=== PATIENT | female | born 1955 | race Caucasian/White ===

== ENCOUNTER 2023-07-08 16:02 | Inpatient (IN) | payer MEDICARE, OTHER, SELFPAY ==
[2023-07-06 19:07] VITALS: BP 136/68
--- NOTE | 2023-07-06 19:14 | ED.GENMED ---
Addendum entered and electronically signed by Alex Avalos, 07/07/23 12:57:
Update blood pressure improved after saline, CT noted labs noted EKG noted patient feeling better, reviewed her workup I believe she can be discharged to home she would like to follow-up with [facility] she is in the practice before for her hip
replacement I offered the patient narcotic analgesia she politely declined
Addendum entered and electronically signed by Alex Avalos, 07/07/23 10:23:
Update
Signout this morning patient waiting for PT case management evaluation shows me she had a slip and fall going into the [facility] movie theater last evening she has a minimally displaced humerus fracture pubic rami fracture has not had a breakfast, on
reevaluation by nursing this morning had some hypotension, symptomatic when she sits up, looks well here, could be vasovagal could be volume contracted, will check EKG CT of the chest abdomen pelvis due to trauma, she has no headache or neck pain,
states she did not hit her head or neck
Disposition pending response to treatment and labs/imaging
30 minutes critical care time
CRITICAL CARE STATEMENT: A total of 30 minutes of critical care time was provided for this patient. This includes management of unstable vital signs, evaluation of the patient at bedside, reviewing the patient's pertinent medical records discussion
with EMS providers and patient's family in addition to discussion with consultants, review of old EKGs and review of pertinent medical records. This time with separate from time utilized to perform the aforementioned documented procedures
Original Note:
History of Present Illness
General
Chief Complaint: Fall
Source: patient
Exam Limitations: none
Time Seen by Provider: 07/06/23 19:05
Nursing documentation reviewed up to this point in time: agreed with
Travel History
Have you had any contact with someone who has COVID-19?: No
Do you have any symptoms of coronavirus? Fever > 100 degrees, chills, cough, shortness of breath, sore throat, loss of taste or smell, muscle aches, or headache?: No
History of Present Illness
History of Present Illness:
68-year-old female with no reported chronic medical issues who presents to the emergency department for evaluation after trip and fall. Patient was at the movie theater's and says that she went to the bathroom tripped on the carpet and fell onto
her left side. She says she injured her left shoulder and hip. She says she did not hit her head. Did not lose consciousness. She denies any other injuries or complaints. She denies any headache or neck pain. Denies any back pain. Denies any
chest or abdominal pain. She denies any numbness or weakness in her extremities. She denies being on any blood thinners�in fact she does not take any medicine she says.
Review of Systems
Review of Systems
All Other Systems: ROS reviewed and negative except as documented in HPI and ROS
Respiratory: Denies trouble breathing
Cardiac: Denies chest pain
ABD/GI: Denies abdominal pain, nausea or vomiting
: Denies flank pain
Musculoskeletal: Reports joint pain (Left shoulder and hip pain); Denies neck pain or back pain
Neurological: Denies headache, weakness or numbness
Phy Exam
Physical Exam
Physical Exam:
General: Awake, alert, oriented x3 with a GCS of 15; appears mildly uncomfortable
Head: Normocephalic, atraumatic
Eyes: Conjunctiva normal, pupils equal round and reactive to light bilaterally
Throat: Airway intact, handling secretions
Neck: Trachea midline, no cervical spine tenderness
Back: No signs of trauma the back or flank and no tenderness in the thoracic or lumbar spine
Lungs: Breathing comfortably no distress
Heart: Regular rate; no chest wall tenderness
Abd: Soft, non distended, nontender
Neuro: Cranial nerves grossly intact, speech fluid; motor and sensory function intact radial, median, ulnar nerve distribution left upper extremity
Skin: no rash
Extremities: Patient has some mild tenderness of her posterior lateral left hip and she has pain with maximum flexion of the passively as well as with extremes of internal and external rotation of the left hip; she has no tenderness or pain in the
left ankle or knee and allows full passive range of motion in these joints with only discomfort in the hip on flexion of the knee; right lower extremities atraumatic and patient moves through full active range of motion comfortably; on exam of her
left upper extremity she has tenderness along the anterior left humeral head, no significant left clavicular tenderness, no significant tenderness of the mid to distal humerus, no tenderness in the left elbow or wrist and allows for full passive
range of motion of these joints without any discomfort; right upper extremity is atraumatic and she moves this through full active range of motion comfortably; she has good palpable pulses in all extremities: specifically palpable left DP and left
radial pulses
Scores
Heart Failure Risk
Heart Failure Risk Score: Not Applicable
Heart Score for Chest Pain Patients
STEMI patient?: Not applicable
Withdrawal Assessment of Alcohol
Withdrawal Assessment Completed?: Not applicable
Course
Orders/Labs/Results
Orders:
Orders
07/06/23 19:11
Ketorolac [Toradol] 30 mg IM NOW STA
CR Shoulder, Trauma - Left Urgent
Reason For Exam: left shoulder pain
07/06/23 19:13
CR Hip - LT w/wo Pel 2-3 Vw* Urgent
Comment:
Reason For Exam: left hip pain s/p fall
Include a pelvis x-ray?: Yes
07/06/23 20:52
Sling Left-Treatment ONCE
07/06/23 21:13
Case Management Consult ONCE
Case Management Consult: Discharge Planning
Pt Eval And Treat Urgent
Activity Level: Ambulate
Vital Signs
Initial and Last Documented VS:
Initial Vital Signs
Temp Pulse Resp BP Pulse Ox
36.6 C 82 18 136/68 100
07/06/23 19:07 07/06/23 19:07 07/06/23 19:07 07/06/23 19:07 07/06/23 19:07
Last Documented Vital Signs
Temp Pulse Resp BP Pulse Ox
36.6 C 82 18 136/68 100
07/06/23 19:07 07/06/23 19:07 07/06/23 19:07 07/06/23 19:07 07/06/23 19:07
MDM/Problems Addressed
Differential Diagnosis Includes:
Shoulder injury: Humeral head fracture, AC separation, clavicular fracture, mid humerus fracture, shoulder dislocation, contusion, sprain, rotator cuff injury
Hip injury: Fracture, dislocation, contusion
MDM/Problems Addressed:
68-year-old female presents for evaluation after mechanical fall onto her left side. She injured her left shoulder and hip but did not hit her head and there was no loss of consciousness. She is not on blood thinners. Vital signs are within
normal limits. Exam as above. Plan to check x-ray of the left shoulder and left hip. Will treat patient's pain. Will monitor closely reassess after the above.
X-rays reviewed: Patient has fracture left humerus as well as left pubic ramus fracture. Clinical reassessment patient's pain is well-controlled with Toradol. Will place in a sling. Discussed with orthopedics they can see patient in the office.
Patient does not feel up to ambulating at this point with her injuries would be unable to use crutches or walker. Consult placed to physical therapy and to case management to evaluate patient in the morning for placement in rehab. Will continue to
monitor.
*Radiology
Radiology exam reviewed: preliminary read by ED provider and radiology read reviewed
*Pulse Oximetry
Patient hypoxic: no
*Critical Care Note
Total Time (30-74mins, 75-104mins- exclusive of procedures): Not Applicable
Data Reviewed
Source: patient and ambulance crew
ED Attending Note
-
Portions of this chart may have been created with voice recognition software.� Occasional wrong word or��sound alike� substitutions may have occurred due to the inherent limitations of voice recognition software.
Discharge Plan
Departure
Patient Disposition: Acute Rehab Facility
Date of Disposition: 07/06/23
Time of Disposition: 21:14
Admit to doctor: CM in AM for rehab
Discharge Problem:
Fracture, humerus, Fracture of pubic ramus
Referrals:
Qiuque Roth MD [Family Provider] -
Interventions
Interventions:
*Risk Screen - Suicide Last Done: 07/06/23 19:05
*General Assessment Last Done: 07/06/23 19:05
[2023-07-06] MEDS: TORADOL 30 MG IM (19:19)
[2023-07-07] VITALS (15 sets, daily range): BP systolic 55–111; BP diastolic 39–68
[2023-07-07] MEDS: TORADOL 30 MG IV (03:16)
[2023-07-07] MEDS: TYLENOL 1000 MG PO (07:48)
--- NOTE | 2023-07-07 08:40 | CM ---
Addendum entered by Devi Sharma RN 07/07/23 15:26:
[facility] is reviewing, but unsure if they can accept [facility] as a Primary payor.
Addendum entered by Devi Sharma RN 07/07/23 15:06:
CM sent additional referrals to [facility], [facility], and [facility]
Addendum entered by Devi Sharma RN 07/07/23 15:01:
[facility] has no beds at this time.
Addendum entered by Devi Sharma RN 07/07/23 14:59:
[facility] unable to accept.
Addendum entered by Devi Sharma RN 07/07/23 14:42:
[facility] is unable to accept. Patient has declined [facility]. CM awaiting accepting facility.
Addendum entered by Devi Sharma RN 07/07/23 13:13:
[facility] is considering but wants to confirm that [facility] will authorize a SNF stay. CM will await call back.
Addendum entered by Devi Sharma RN 07/07/23 09:55:
[facility] has accepted patient. CM reviewed medical records. Patient is not medically ready for discharge at this time. CM will continue to follow for needs.
Addendum entered by Devi Sharma RN 07/07/23 09:07:
CM met with patient and in room. Patient is agreeable to bed search for SNF, but would prefer home discharge with VN. CM sent referrals to [facility], [facility], [facility], [facility], [facility] and [facility].
CM is awaiting PT recommendations.
Original Note:
CM reviewed medical records. CM spoke with [facility] secondary and they will approve SNF based on medical necessity. CM will continue to follow for PT recommendations.
[2023-07-07] MEDS: NSS 1000 IV (10:12)
[2023-07-07 10:16] LABS: % Basophils 0.5 % (0-2); % Immature Granulocytes 0.3 % (0-0.5); % Lymphocytes 8.3 % (20.5-51.1); % Neutrophils 82.9 % (42.2-75.2); Absolute Lymphocytes 0.5 10^3/uL (1.2-3.4); Absolute Monocytes 0.5 10^3/uL (0.1-0.6); Absolute Neutrophils 4.8 10^3/uL (1.4-6.5); Hematocrit 31.3 % (37.0-47.0); Hemoglobin 11.2 g/dL (12.0-16.0); Mean Corp Hgb Conc. 35.8 g/dL (33.0-37.0); Mean Corpuscular Hgb 31.9 pg (27.0-31.0); Mean Corpuscular Volume 89.2 fL (81.0-99.0); Mean Platelet Volume 10.1 fL (7.4-10.4); Nucleated Red Blood Cells % 0 %; Platelet Count 142 10^3/uL (130-400); Red Blood Cell Count 3.51 10^6/uL (4.20-5.40); Red Cell Dist. Width 12.4 % (11.5-14.5); White Blood Cell Count 5.8 10^3/uL (4.8-10.8)
[2023-07-07 10:29] LABS: ALT (SGPT) 20 U/L (0-35); AST (SGOT) 29 U/L (14-36); Albumin 3.4 g/dl (3.5-5.0); Alkaline Phosphatase 89 U/L (38-126); Blood Urea Nitrogen 19 mg/dl (7-17); Calcium 8.6 mg/dl (8.4-10.2); Carbon Dioxide 26 mmol/L (22-30); Chloride 101 mmol/L (98-107); Glucose 122 mg/dl (70-99); Potassium 3.9 mmol/L (3.5-5.1); Sodium 130 mmol/L (135-145); Total Bilirubin 1.3 mg/dl (0.2-1.3); Total Protein 5.8 g/dl (6.3-8.2); eGFR > 60.00
[2023-07-07 12:56] LABS: Troponin I < 0.012 ng/ml
--- NOTE | 2023-07-07 13:45 | HPS.HSE ---
Addendum entered and electronically signed by Prakash Walker MD 07/07/23 22:11:
I independently saw and examined the patient on July 07, 2023.
The [employer] DEPARTMENT CHAIR's note was reviewed and I agree with the note.
Comment:
68-year-old female with past medical history of left hip replacement, neuropathy and mechanical falls presented status post fall at the [facility] movie theater. Patient was at the movie theater, she was holding her urine for a long time, she went to
the bathroom, however after using the bathroom and after coming out of the bathroom, she tripped onto the carpet and fell onto her left side. She says she injured her left shoulder and left hip. She said that she did not hit her head and did not
lose consciousness, and denied any having palpitations, sweating, chest pain, blurry vision or shortness of breath prior to the fall. She denies any headache or neck pain, back pain, chest or abdominal pain. She denied any numbness or true weakness
in her extremities.
She said that she did get dizzy as she got up with physical therapy.
Vital Signs
Afebrile
Hypotensive with SBP down into the 50s and 70s
RR okay
Oxygen saturation okay on room air
Physical Exam
General: Well Developed, Well Nourished and No Apparent Distress
HEENT: Normocephalic, Moist mucous membranes and Atraumatic
Respiratory: Clear
Cardiac: S1/S2 and Regular Rhythm
GI: Soft, Non Tender, Non Distended and Normal Bowel Sounds
Musculoskeletal: No Cyanosis and No Edema
Skin: Warm. Dry.
Neuro: AAO x 3 and Nonfocal/grossly intact
Psych: Calm
Assessment/Plan
# Fall with arm and pubic rami fracture fracture
#Left Humerus Fracture
-Chest abdomen pelvis CT with Partially visualized proximal left humerus fracture. Mildly displaced left superior and inferior pubic rami fractures.
-Hip x-ray with Displaced left superior pubic ramus fracture. Probable nondisplaced left inferior pubic ramus fracture.
-Shoulder x-ray with Left humeral shaft fracture.
-PT/OT consult
-right shoulder in sling
-orthopedics consulted, recommendations appreciated
-Neurovascular checks
# Hyponatremia likely hypovolemic
-Sodium 130
-Normal saline in ER
-fluid restriction
-BMP in a.m.
# Hypotension likely from dehydration
-Soft BP in ER
-obtain orthostatics
-Monitor vital signs
-Received IV fluids
#Neuropathy
#DVT prophylaxis
-scd
#CODE status
-full code
Original Note:
Family Physician
-
Family Physician: Quique Roth
Chief Complaint
-
left shoulder pain
History of Present Illness
68-year-old female with no significant PMH presented to us s/p fall at theater.� Patient was at the movie theater's and says that she tripped on the carpet and fell onto her left side.� She says she injured her left shoulder and hip.� She says she
did not hit her head.� Did not lose consciousness.� She denies any headache or neck pain.� Denies any back pain.� Denies any chest or abdominal pain.� She denies any numbness or weakness in her extremities.�denied abdominal pain, n,v,d. denied
dysuria or hematuria.
stated dizzy as she got up with physical therapy. she has not ate or drink since last night. admitting for further managment.
Medical History
Past Medical History
Past Medical History: Reports None and Other
Additional Past Medical History:
left hip fracture.
Past Surgical History: Reports None and Other
Additional Past Surgical History:
left hip replacement
right wrist surgery
Social History
Tobacco: Former Smoker
Alcohol: None
Drug: None
Personal:
Living: With Family
Family History
Family History: Not pertinent
Allergies / Home Medications
Allergies reflects when Allergies were last updated in [employer].
Home Medications with original date entered in [employer]
Allergy/Medication List:
Allergies
Allergy/AdvReac Type Severity Reaction Status Date / Time
No Known Allergies Allergy Unverified 07/06/23 19:05
Home Medications
ibuprofen 400 mg tablet 400 mg PO Q8H PRN Pain #30 tabs 07/07/23
Review of Systems
-
Constitutional: Reports No Symptoms
EENT: Reports No Symptoms
Respiratory: Reports No Symptoms
Cardiac: Reports No Symptoms
Abdomen/GI: Reports No Symptoms
: Reports No Symptoms
Musculoskeletal: Reports No Symptoms and Other (left shoulder and pelvic pain)
Skin: Reports No Symptoms
Neurological: Reports No Symptoms
Endocrine: Reports No Symptoms
Hematologic/Lymphatic: Reports No Symptoms
Psych: Reports No Symptoms
Physical Exam
Vital Signs
Vital Signs
Temp Pulse Resp BP Pulse Ox
97.8 F 78 18 99/50 97
07/06/23 19:07 07/07/23 13:00 07/07/23 13:00 07/07/23 13:00 07/07/23 13:00
Physical Exam
General: Well Developed, Well Nourished and No Apparent Distress
HEENT: NormoCephalic, Moist mucous membranes and Atraumatic
Respiratory: Clear
Cardiac: S1/S2 and Regular Rhythm; No Murmur or Rub
GI: Soft, Non Tender, Non Distended and Normal Bowel Sounds; No Organomegaly
Rectal: Deferred by Provider
Musculoskeletal: No Clubbing, No Cyanosis and No Edema
Skin: No Rash
Neuro: AO x 3 and Nonfocal/grossly intact
Psych: Calm
Laboratory Results
-
07/07/23 10:04
07/07/23 10:04
Laboratory Results
Total Bilirubin 1.3 mg/dl (0.2-1.3) 07/07/23 10:04
AST 29 U/L (14-36) 07/07/23 10:04
ALT 20 U/L (0-35) 07/07/23 10:04
Alkaline Phosphatase 89 U/L (38-126) 07/07/23 10:04
Troponin I < 0.012 ng/ml 07/07/23 12:23
Data Reviewed
-
Diagnostic Radiology: Report Reviewed by me
Lab Data: Labs Reviewed by me
Impression/Plan
-
# Fall with arm and pubic rami fracture fracture
-Chest abdomen pelvis CT with Partially visualized proximal left humerus fracture. Mildly displaced left superior and inferior pubic rami fractures.
-Hip x-ray with Displaced left superior pubic ramus fracture. Probable nondisplaced left inferior pubic ramus fracture.
-Shoulder x-ray with Left humeral shaft fracture.
-PT/OT consult
-right shoulder in sling
-orthopedics consulted
# Hyponatremia likely hypervolemic
-Sodium 130
-Normal saline in ER
-fluid restriction
-BMP in a.m.
# Hypotension likely from dehydration
-Soft BP in ER
-obtain orthostatics
-Monitor vital signs
#DVT prophylaxis
-scd
#CODE status
-full code
--- NOTE | 2023-07-07 15:38 | CM ---
Addendum entered by Devi Sharma RN 07/07/23 16:38:
[facility] will not accept [facility] authorization as Medicare is [employer].
Original Note:
CM updated patient with bed search. Patient is appreciative for CM assistance.
--- NOTE | 2023-07-07 17:27 | PTCARENOTE ---
Pt arrived to [facility] from ED s/p fall- pelvic fx and L humerus fx. Pt AAOx3. Pt states minimal pain at this time. Pt oriented to call gallo and room, bed locked and in position, call gallo within reach.
[2023-07-07] MEDS: TYLENOL 650 MG PO (20:02)
[2023-07-08] VITALS (8 sets, daily range): BP systolic 98–113; BP diastolic 52–72; PULSE 75–90; O2SAT 97
[2023-07-08] MEDS: TYLENOL 650 MG PO ×2 (02:34→20:40)
[2023-07-08] MEDS: TORADOL 30 MG IV (03:17)
[2023-07-08 06:21] LABS: Hematocrit 26.5 % (37.0-47.0); Hemoglobin 9.6 g/dL (12.0-16.0); Mean Corp Hgb Conc. 36.2 g/dL (33.0-37.0); Mean Corpuscular Hgb 32.4 pg (27.0-31.0); Mean Corpuscular Volume 89.5 fL (81.0-99.0); Mean Platelet Volume 10.3 fL (7.4-10.4); Platelet Count 110 10^3/uL (130-400); Red Blood Cell Count 2.96 10^6/uL (4.20-5.40); Red Cell Dist. Width 12.4 % (11.5-14.5); White Blood Cell Count 5.1 10^3/uL (4.8-10.8)
[2023-07-08 06:47] LABS: Blood Urea Nitrogen 17 mg/dl (7-17); Calcium 8.2 mg/dl (8.4-10.2); Carbon Dioxide 29 mmol/L (22-30); Chloride 96 mmol/L (98-107); Glucose 106 mg/dl (70-99); Sodium 126 mmol/L (135-145); eGFR > 60.00
--- NOTE | 2023-07-08 09:22 | CON.ORTHO ---
Consultation
-
Date/Time Consultation Requested: 07/07/2023
Date/Time Consultation Performed: 07/08/2023 915 Am
Requesting Provider: Primary
Performing Provider: Dot
Reason for Consultation: Left proximal humeral shaft fracture
Consultation - Orthopedics
History
HPI: 68-year-old female healthy presented to the emergency department status post fall with complaints of left hip and groin pain. She was subsequently diagnosed with a left proximal humeral shaft fracture as well as a left-sided superior inferior
pubic rami fracture. She was subsequently admitted to the hospitalist service for ambulatory dysfunction orthopedics was consulted. [place] Today she is
complaining of pain localized to the left upper extremity as well as some groin and low back pain. She has had difficulty ambulating. She does report to me that she is actually very active at baseline. She goes to the gym frequently works out
does cardio as well as strength training.
Allergies / Home Medications
Past medical history: None reported
Past surgical history: Left total hip arthroplasty, open reduction internal fixation left distal radius fracture
Social history: Lives at home with family, non-smoker, former smoker from 14 until 24
Family history: Not pertinent
Allergy/AdvReac Type Severity Reaction Status Date / Time
No Known Allergies Allergy Unverified 07/06/23 19:05
Medication Instructions Recorded
Beet Powder 1 dose PO .MID-DAY 07/07/23
ICaps 1 tab PO BID 07/07/23
Vitamin C With Essie Hips 1 tab PO DAILY@1400 07/07/23
cyanocobalamin (vitamin B-12) 1 ml PO DAILY 07/07/23
1,000 mcg/mL oral drops
Vital Signs / Lab Results
Temp Pulse Resp BP Pulse Ox
98.9 F 69 16 98/61 95
07/08/23 07:45 07/08/23 07:45 07/08/23 07:45 07/08/23 07:45 07/08/23 07:45
07/08/23 05:35
07/08/23 05:35
10 point review of systems reviewed and negative as otherwise stated
General: Comfortable appearing supine in bed, sling left upper extremity
Musculoskeletal
Left upper extremity without ecchymotic staining, moderate swelling throughout left upper arm
Sling in place
There is tenderness palpation over proximal humerus proximal humeral shaft
Motor and sensation grossly intact distally including the radial nerve
There are some mild tenderness palpation left groin
There is some reproducible pain with motion to the left hip
Able to straight leg raise bilaterally
Distal motor and sensation baseline lower extremities
No other areas of bony tenderness palpation crepitation of long bones and joints and tertiary examination
Diagnostic studies
X-rays left shoulder reveal somewhat comminuted proximal humeral shaft fracture mildly angulated with significant displacement
CT scan chest abdomen pelvis reviewed does show left-sided LC 1 injury to include superior and inferior pubic rami fracture
Assessment / Plan
68-year-old healthy and active female status post fall with left displaced proximal humeral shaft fracture as well as left-sided LC 1 injury. I had a long discussion with the patient regarding her diagnoses and treatment options. Specifically for
proximal humeral shaft fracture I did discuss both surgical and nonsurgical options. I do think that this would be very difficult to control with a Anders style brace given the proximal nature of her fracture. She is quite active and I do think
she would be a good candidate for operative fixation of this fracture. We discussed doing this during this hospitalization or following up on an outpatient basis. She is not sure after discussion whether or not she is planning on going home or
whether or not she is being discharged to a SNF. I will plan to reach out to the primary team to discuss her disposition and come up with a treatment plan. In the interim would recommend immobilization left upper extremity in sling. For her pubic
rami fractures, she can certainly be weightbearing to her tolerance bilateral lower extremities. Would recommend DVT prophylaxis during hospitalization.
Nonweightbearing left upper extremity in sling
Weightbearing as tolerated bilateral lower extremity
Pain control
PT OT
DVT prophylaxis
Will discuss with primary team regarding disposition and timing for operative fixation left proximal humerus shaft fracture.
--- NOTE | 2023-07-08 10:16 | W.PN.HOSP.TC ---
Addendum entered and electronically signed by Prakash Walker MD 07/08/23 15:50:
Consulted nephrology for worsening hyponatremia
Original Note:
Today's Communication/Plan
-
Surgery early next week
Assessment / Plan
Assessment / Plan
Physical Exam
General: Well Developed, Well Nourished and No Apparent Distress
HEENT: Normocephalic, Moist mucous membranes and Atraumatic
Respiratory: Clear
Cardiac: S1/S2 and Regular Rhythm
GI: Soft, Non Tender, Non Distended and Normal Bowel Sounds
Musculoskeletal: No Cyanosis and No Edema
Skin: Warm. Dry.
Neuro: AAO x 3 and Nonfocal/grossly intact
Psych: Calm
Assessment/Plan
# Fall with arm and pubic rami fracture fracture
# Left Humerus Fracture
-Chest abdomen pelvis CT with Partially visualized proximal left humerus fracture. Mildly displaced left superior and inferior pubic rami fractures.
-Hip x-ray with Displaced left superior pubic ramus fracture. Probable nondisplaced left inferior pubic ramus fracture.
-Shoulder x-ray with Left humeral shaft fracture.
-One option is discharge patient to home and follow-up in the orthopedics office and schedule repair outpatient, however:
-Patient would like to go to a SNF, discussed with orthopedics surgery, in that case patient will need to stay here until July 11, 2023 or July 12, 2023 to get surgery after which she can be discharged to a SNF.
-PT/OT consult
-right shoulder in sling
-orthopedics consulted, recommendations appreciated
-Neurovascular checks
# Hyponatremia likely hypovolemic
-Sodium 130
-Normal saline in ER
-Continue PO fluid restriction
-BMP repeat tonight, consult nephrology if hyponatremia worsening
# Hypotension likely from dehydration
-Soft BP in ER -- NOW IMPROVED
-Orthostatic vital signs negative
-Monitor vital signs
-Received IV fluids
#Neuropathy
#DVT prophylaxis
-scd
#CODE status
-full code
Anticipated Discharge: > 48 hours
Subjective/Interval History
-
Date of Service: July 08, 2023
Patient was seen and examined. She appeared to be comfortable, denied any dizziness or lightheadedness. Blood pressure appears to have improved today, she is eating and drinking better.
Objective Data
-
Labs:
Laboratory Results
07/08/23
05:35
WBC 5.1
Hgb 9.6 L
Hct 26.5 L
Plt Count 110 L D
Sodium 126 L
Potassium 4.0
Chloride 96 L
Carbon Dioxide 29
BUN 17
Creatinine 0.6
Glucose 106 H
Calcium 8.2 L
Vital Signs:
Vital Signs
Temp Pulse Resp BP Pulse Ox
98.9 F 69 16 98/61 95
07/08/23 07:45 07/08/23 07:45 07/08/23 07:45 07/08/23 07:45 07/08/23 07:45
I&O
07/07/23 07/08/23 07/09/23
06:59 06:59 06:59
Intake Total 2680 / 2680
Balance 2680 / 2680
--- NOTE | 2023-07-08 16:29 | CM ---
For surgical intervention next week. Anticipate discharge to SNF for retirement and rehab services.
--- NOTE | 2023-07-08 17:34 | W.CON.NEPH ---
Consultation
-
Date/Time Consultation Requested: 07/08/2023 4 PM
Date/Time Consultation Performed: 07/08/2023 5:30 PM
Requesting Provider: Dr. Walker
Performing Provider: Dr. Gilbert
Reason for Consultation: Hyponatremia
Medical History
-
Chief Complaint: Hyponatremia
History of Present Illness:
This is a 68-year-old female with very limited past medical history. She says that she does have hypertension but does not require medication. She checks her blood pressures at home and they average 130/80. She was at the movie theater in [facility]
and had gone to the bathroom but then tripped on the carpet and had fallen on her left side. This resulted in significant left-sided pain. EMS had, and brought her to the emergency room. She was then found to have a left humeral fracture as well
as a left superior and inferior rami fractures. She was also noted to have hyponatremia. She was given saline and her sodium level worsened. Her blood pressures are relatively low for her at this time.
Past Medical History
Hypertension
Left hip replacement
ORIF left distal radius
Social History
Tobacco: Former Smoker
Alcohol: None
Family History
Cancer and hypertension, no CKD
Allergies / Home Medications
Allergy/AdvReac Type Severity Reaction Status Date / Time
No Known Allergies Allergy Unverified 07/06/23 19:05
Medication Instructions Recorded Confirmed Type
Beet Powder 1 dose PO .MID-DAY Supplement 07/07/23 07/07/23 History
ICaps 1 tab PO BID Supplement 07/07/23 07/07/23 History
Vitamin C With Essie Hips 1 tab PO DAILY@1400 Supplement 07/07/23 07/07/23 History
cyanocobalamin (vitamin B-12) 1 ml PO DAILY Supplement 07/07/23 07/07/23 History
1,000 mcg/mL oral drops
Review of Systems
-
Pain particularly on the left side. No chest pain or shortness of breath. No nausea or vomiting. No change in urine output. The remainder of the complete review of systems was negative.
Physical Exam
Vital Signs
Vital Signs
Temp Pulse Resp BP Pulse Ox
98.9 F 80 18 108/59 97
07/08/23 15:09 07/08/23 15:09 07/08/23 15:09 07/08/23 15:09 07/08/23 15:09
Lab Results
WBC 5.1 10^3/uL (4.8-10.8) 07/08/23 05:35
RBC 2.96 10^6/uL (4.20-5.40) L 07/08/23 05:35
Hgb 9.6 g/dL (12.0-16.0) L 07/08/23 05:35
Hct 26.5 % (37.0-47.0) L 07/08/23 05:35
Plt Count 110 10^3/uL (130-400) L D 07/08/23 05:35
eGFR > 60.00 07/08/23 05:35
Albumin 3.4 g/dl (3.5-5.0) L 07/07/23 10:04
Physical Exam
General: AOx3
HEENT: PERRL, EOMI, Ear/Nose Intact, Hearing Normal, Oropharynx Clear/Moist, Neck Supple, Trachea Midline and No Thyromegaly
Respiratory: Clear
Cardiac: Regular Rate/Rhythm
Musculoskeletal: No Edema
Skin: No Rash and Normal Turgor
Psych: Mood/afflect pleasant and Insight/judgement good
Assessment/Plan
-
Assessment
Hyponatremia
Left proximal humerus fracture
Left pelvic rami fracture
Hypertension now hypotension
Plan
3% saline
Serial BMP
Check urine studies
I suspect the pain is a greater driving force for her hyponatremia. NSAIDs will be excepted as well as narcotics for pain management
Data Reviewed
-
Radiology: Report Reviewed by me (CT chest abdomen pelvis with contrast on July 07, 2023 shows left proximal humerus fracture, bilateral renal cysts, L4 compression fracture, left pubic rami fracture)
Medical Tests (Nuc Med, Echo etc): Image Personally Visualized and interpreted (EKG on 07/07/2023 by my reading shows normal sinus rhythm right bundle branch block)
Labs: Labs Reviewed by me
[2023-07-08] MEDS: SODIUM CHLORIDE 3% 250 IV (18:05)
[2023-07-08 20:39] LABS: Urine Albumin Negative (Neg - Trace); Urine Bilirubin Negative (Negative); Urine Character Clear (Clear); Urine Color Yellow; Urine Glucose Negative (Negative); Urine Ketone Negative (Negative); Urine Leukocyte Negative (Negative); Urine Nitrite Negative (Negative); Urine Occult Blood Negative (Negative); Urine Urobilinogen Negative (Neg - 1+)
[2023-07-08 20:40] LABS: Osmolality Urine 133 mOsm/kg (300-900)
[2023-07-08 21:34] LABS: Urine Sodium < 5 mmol/L (30-90)
[2023-07-08 22:06] LABS: Blood Urea Nitrogen 14 mg/dl (7-17); Carbon Dioxide 23 mmol/L (22-30); Glucose 120 mg/dl (70-99); eGFR > 60.00
[2023-07-08 22:20] LABS: Chloride 97 mmol/L (98-107); Potassium 4.1 mmol/L (3.5-5.1); Sodium 128 mmol/L (135-145)
[2023-07-09] VITALS (8 sets, daily range): BP systolic 89–126; BP diastolic 42–71; PULSE 75–102; O2SAT 98
[2023-07-09] MEDS: TYLENOL 650 MG PO ×2 (01:33→11:58)
[2023-07-09 07:41] LABS: Hematocrit 25.5 % (37.0-47.0); Mean Corp Hgb Conc. 35.3 g/dL (33.0-37.0); Mean Corpuscular Hgb 32.5 pg (27.0-31.0); Mean Corpuscular Volume 92.1 fL (81.0-99.0); Platelet Count 103 10^3/uL (130-400); Red Blood Cell Count 2.77 10^6/uL (4.20-5.40); Red Cell Dist. Width 12.3 % (11.5-14.5)
[2023-07-09 07:51] LABS: Blood Urea Nitrogen 11 mg/dl (7-17); Calcium 7.9 mg/dl (8.4-10.2); Carbon Dioxide 26 mmol/L (22-30); Chloride 104 mmol/L (98-107); Glucose 94 mg/dl (70-99); Potassium 3.9 mmol/L (3.5-5.1); Sodium 130 mmol/L (135-145); eGFR > 60.00
--- NOTE | 2023-07-09 09:35 | W.PN.NEPH.PH ---
Today's Communication / Plan
-
3%
Assessment/Plan
-
Assessment
Hyponatremia
Left proximal humerus fracture
Left pelvic rami fracture
Hypertension now hypotension
Plan
3% saline again
Serial BMP
repeat CBC
-
-
Date of Service: July 09, 2023
CC / HPI / ROS
-
Chief Complaint:
hyponatremia
History of Present Illness:
now pancytopenic
BP stable
Na up to 130 after 3%
Review of Systems:
no CP/SOB
Labs
-
Labs:
WBC 4.0 10^3/uL (4.8-10.8) L 07/09/23 06:14
RBC 2.77 10^6/uL (4.20-5.40) L 07/09/23 06:14
Hgb 9.0 g/dL (12.0-16.0) L 07/09/23 06:14
Hct 25.5 % (37.0-47.0) L 07/09/23 06:14
Plt Count 103 10^3/uL (130-400) L 07/09/23 06:14
Sodium 130 mmol/L (135-145) L 07/09/23 06:14
Potassium 3.9 mmol/L (3.5-5.1) 07/09/23 06:14
Chloride 104 mmol/L (98-107) 07/09/23 06:14
Carbon Dioxide 26 mmol/L (22-30) 07/09/23 06:14
BUN 11 mg/dl (7-17) 07/09/23 06:14
Creatinine 0.6 mg/dL (0.6-1.0) 07/09/23 06:14
eGFR > 60.00 07/09/23 06:14
Glucose 94 mg/dl (70-99) 07/09/23 06:14
Calcium 7.9 mg/dl (8.4-10.2) L 07/09/23 06:14
Albumin 3.4 g/dl (3.5-5.0) L 07/07/23 10:04
Physical Exam
-
Vital Signs:
Vital Signs
Temp Pulse Resp BP Pulse Ox
98.0 F 75 14 103/42 98
07/09/23 07:10 07/09/23 07:10 07/09/23 07:10 07/09/23 07:10 07/09/23 07:10
Cardiovascular:: Regular rate and rhythm
Respiratory:: Bilateral: CTA
Lung Excursion:: Normal
Abdomen:: Nontender and Soft
Bowel Sounds:: Normal
Extremity Edema:: None: Bilateral:
[2023-07-09] MEDS: SODIUM CHLORIDE 3% 250 IV (10:24)
[2023-07-09 16:26] LABS: Hematocrit 26.6 % (37.0-47.0); Hemoglobin 9.4 g/dL (12.0-16.0); Mean Corp Hgb Conc. 35.3 g/dL (33.0-37.0); Mean Corpuscular Hgb 32.2 pg (27.0-31.0); Mean Corpuscular Volume 91.1 fL (81.0-99.0); Mean Platelet Volume 10.5 fL (7.4-10.4); Platelet Count 121 10^3/uL (130-400); Red Blood Cell Count 2.92 10^6/uL (4.20-5.40); Red Cell Dist. Width 12.6 % (11.5-14.5); White Blood Cell Count 4.1 10^3/uL (4.8-10.8)
[2023-07-09 16:40] LABS: Blood Urea Nitrogen 13 mg/dl (7-17); Calcium 7.9 mg/dl (8.4-10.2); Carbon Dioxide 25 mmol/L (22-30); Chloride 109 mmol/L (98-107); Glucose 112 mg/dl (70-99); Potassium 3.8 mmol/L (3.5-5.1); Sodium 135 mmol/L (135-145); eGFR > 60.00
--- NOTE | 2023-07-09 19:17 | W.PN.HOSP.TC ---
Today's Communication/Plan
-
Correct sodium, monitor BMP
Tylenol dose now is scheduled for better pain control
Fever last night - will do an infectious work-up
Assessment / Plan
Assessment / Plan
Physical Exam
General: Well Developed, Well Nourished and No Apparent Distress
HEENT: Normocephalic, Moist mucous membranes and Atraumatic
Respiratory: Clear
Cardiac: S1/S2 and Regular Rhythm
GI: Soft, Non Tender, Non Distended and Normal Bowel Sounds
Musculoskeletal: No Cyanosis and No Edema
Skin: Warm. Dry.
Neuro: AAO x 3 and Nonfocal/grossly intact
Psych: Calm
Assessment/Plan
# Fall with arm and pubic rami fracture fracture
# Left Humerus Fracture
-Chest abdomen pelvis CT with Partially visualized proximal left humerus fracture. Mildly displaced left superior and inferior pubic rami fractures.
-Hip x-ray with Displaced left superior pubic ramus fracture. Probable nondisplaced left inferior pubic ramus fracture.
-Shoulder x-ray with Left humeral shaft fracture.
-One option is discharge patient to home and follow-up in the orthopedics office and schedule repair outpatient, however:
-Patient would like to go to a SNF, discussed with orthopedics surgery, in that case patient will need to stay here until July 11, 2023 or July 12, 2023 to get surgery after which she can be discharged to a SNF.
-PT/OT consult
-right shoulder in sling
-orthopedics consulted, recommendations appreciated
-Neurovascular checks
# Fever on July 08, 2023 PM
-Will do an infectious work-up although patient does not have any obvious signs or symptoms of infection
# Hyponatremia likely hypovolemic
-Sodium 130
-Normal saline in ER
-Continue PO fluid restriction
-Consulted nephrology, recommendations appreciated: getting 3% saline
# Hypotension likely from dehydration - IMPROVED
-Soft BP in ER -- NOW IMPROVED
-Orthostatic vital signs negative
-Monitor vital signs
-Received IV fluids
#Neuropathy
#DVT prophylaxis
-scd
#CODE status
-full code
Anticipated Discharge: > 48 hours
Subjective/Interval History
-
Date of Service: July 09, 2023
Patient was seen and examined. She reported no new significant symptoms or complaints, she did have a fever last night.
Objective Data
-
Labs:
Laboratory Results
07/09/23 07/09/23
06:14 16:19
WBC 4.0 L 4.1 L
Hgb 9.0 L 9.4 L
Hct 25.5 L 26.6 L
Plt Count 103 L 121 L
Sodium 130 L 135
Potassium 3.9 3.8
Chloride 104 109 H
Carbon Dioxide 26 25
BUN 11 13
Creatinine 0.6 0.6
Glucose 94 112 H
Calcium 7.9 L 7.9 L
Vital Signs:
Vital Signs
Temp Pulse Resp BP Pulse Ox
97.9 F 75 14 101/59 98
07/09/23 15:10 07/09/23 15:10 07/09/23 15:10 07/09/23 15:10 07/09/23 15:10
I&O
07/08/23 07/09/23 07/10/23
06:59 06:59 06:59
Intake Total 2680 / 2680 1200 / 1200 900 / 900
Balance 2680 / 2680 1200 / 1200 900 / 900
[2023-07-09] MEDS: TYLENOL PO (20:10)
[2023-07-09] MEDS: TYLENOL 1000 MG PO (22:21)
[2023-07-10] VITALS (7 sets, daily range): BP systolic 100–112; BP diastolic 50–69; PULSE 75–86; O2SAT 98
[2023-07-10 07:21] LABS: Hematocrit 25.5 % (37.0-47.0); Hemoglobin 8.9 g/dL (12.0-16.0); Mean Corp Hgb Conc. 34.9 g/dL (33.0-37.0); Mean Corpuscular Hgb 32.2 pg (27.0-31.0); Mean Corpuscular Volume 92.4 fL (81.0-99.0); Mean Platelet Volume 10.7 fL (7.4-10.4); Platelet Count 130 10^3/uL (130-400); Red Blood Cell Count 2.76 10^6/uL (4.20-5.40); Red Cell Dist. Width 12.7 % (11.5-14.5); White Blood Cell Count 4.6 10^3/uL (4.8-10.8)
[2023-07-10 07:52] LABS: Blood Urea Nitrogen 14 mg/dl (7-17); Calcium 8.3 mg/dl (8.4-10.2); Carbon Dioxide 24 mmol/L (22-30); Chloride 106 mmol/L (98-107); Glucose 97 mg/dl (70-99); Sodium 136 mmol/L (135-145); eGFR > 60.00
[2023-07-10] MEDS: TYLENOL 1000 MG PO ×3 (08:13→23:29)
--- NOTE | 2023-07-10 12:18 | W.PN.NEPH.PH ---
Today's Communication / Plan
-
follow BMP
Assessment/Plan
-
Assessment
Hyponatremia
Left proximal humerus fracture
Left pelvic rami fracture
Hypertension now hypotension
Plan
follow BMP
await surgical plans
-
-
Date of Service: July 10, 2023
CC / HPI / ROS
-
Chief Complaint:
hyponatremia
History of Present Illness:
plts higher
WBC still low
BP stable
Na up to 136 after 3%
Review of Systems:
no CP/SOB
Labs
-
Labs:
WBC 4.6 10^3/uL (4.8-10.8) L 07/10/23 05:27
RBC 2.76 10^6/uL (4.20-5.40) L 07/10/23 05:27
Hgb 8.9 g/dL (12.0-16.0) L 07/10/23 05:27
Hct 25.5 % (37.0-47.0) L 07/10/23 05:27
Plt Count 130 10^3/uL (130-400) 07/10/23 05:27
Sodium 136 mmol/L (135-145) 07/10/23 05:27
Potassium 4.0 mmol/L (3.5-5.1) 07/10/23 05:27
Chloride 106 mmol/L (98-107) 07/10/23 05:27
Carbon Dioxide 24 mmol/L (22-30) 07/10/23 05:27
BUN 14 mg/dl (7-17) 07/10/23 05:27
Creatinine 0.5 mg/dL (0.6-1.0) L 07/10/23 05:27
eGFR > 60.00 07/10/23 05:27
Glucose 97 mg/dl (70-99) 07/10/23 05:27
Calcium 8.3 mg/dl (8.4-10.2) L 07/10/23 05:27
Albumin 3.4 g/dl (3.5-5.0) L 07/07/23 10:04
Physical Exam
-
Vital Signs:
Vital Signs
Temp Pulse Resp BP Pulse Ox
98.1 F 78 16 107/50 99
07/10/23 11:30 07/10/23 11:30 07/10/23 11:30 07/10/23 11:30 07/10/23 11:30
Cardiovascular:: Regular rate and rhythm
Respiratory:: Bilateral: Coarse
Lung Excursion:: Normal
Abdomen:: Nontender and Soft
Bowel Sounds:: Normal
Extremity Edema:: None: Bilateral:
[2023-07-10] MEDS: ULTRAM 25 MG PO (14:00)
--- NOTE | 2023-07-10 19:04 | W.PN.HOSP.TC ---
Today's Communication/Plan
-
Sodium improved
Blood pressure improved
Surgery this week
Monitor sodium through AM labs
Monitor constipation - may need a more aggressive bowel regimen
Assessment / Plan
Assessment / Plan
Physical Exam
General: Well Developed, Well Nourished and No Apparent Distress
HEENT: Normocephalic, Moist mucous membranes and Atraumatic
Respiratory: Clear
Cardiac: S1/S2 and Regular Rhythm
GI: Soft, Non Tender, Non Distended and Normal Bowel Sounds
Musculoskeletal: No Cyanosis and No Edema. Left arm in sling, good radial pulses and LUE neurovascularly intact distally.
Skin: Warm. Dry.
Neuro: AAO x 3 and Nonfocal/grossly intact
Psych: Calm
Assessment/Plan
# Fall with arm and pubic rami fracture fracture
# Left Humerus Fracture
-Chest abdomen pelvis CT with Partially visualized proximal left humerus fracture. Mildly displaced left superior and inferior pubic rami fractures.
-Hip x-ray with Displaced left superior pubic ramus fracture. Probable nondisplaced left inferior pubic ramus fracture.
-Shoulder x-ray with Left humeral shaft fracture.
-Patient would like to get surgery done here in the hospital on July 11, 2023 or July 12, 2023 to get surgery after which she can be discharged to a SNF
-PT/OT consult
-orthopedics consulted, recommendations appreciated
-Neurovascular checks
# Fever on July 08, 2023 PM
-No further fever, and no signs of infection or hemodynamic instability
-Hold off on antibiotics at this time
# Hyponatremia likely hypovolemic
-Sodium 130
-Normal saline in ER
-Continue PO fluid restriction
-Consulted nephrology, recommendations appreciated: received 3% saline
-Recheck AM sodium/BMP
# Hypotension likely from dehydration - RESOLVED
-Soft BP in ER -- NOW IMPROVED
-Orthostatic vital signs negative
-Monitor vital signs
-Received IV fluids
#Neuropathy
#DVT prophylaxis
-scd
#CODE status
-full code
Anticipated Discharge: > 48 hours
Subjective/Interval History
-
Date of Service: July 10, 2023
Patient was seen and examined. She reported feeling okay, her last fever of 100.5 F was the evening of July 08, 2023. She reported no other new, significant symptoms or complaints.
Objective Data
-
Labs:
Laboratory Results
07/10/23
05:27
WBC 4.6 L
Hgb 8.9 L
Hct 25.5 L
Plt Count 130
Sodium 136
Potassium 4.0
Chloride 106
Carbon Dioxide 24
BUN 14
Creatinine 0.5 L
Glucose 97
Calcium 8.3 L
Vital Signs:
Vital Signs
Temp Pulse Resp BP Pulse Ox
98.1 F 81 16 100/61 98
07/10/23 15:10 07/10/23 15:10 07/10/23 15:10 07/10/23 15:10 07/10/23 15:10
I&O
07/09/23 07/10/23 07/11/23
06:59 06:59 06:59
Intake Total 1200 / 1200 1360 / 1360 1140 / 1140
Balance 1200 / 1200 1360 / 1360 1140 / 1140
[2023-07-11] VITALS (9 sets, daily range): BP systolic 92–128; BP diastolic 45–73; PULSE 70–88; O2SAT 99–100
[2023-07-11 06:09] LABS: Hematocrit 24.3 % (37.0-47.0); Hemoglobin 8.4 g/dL (12.0-16.0); Mean Corp Hgb Conc. 34.6 g/dL (33.0-37.0); Mean Corpuscular Hgb 32.3 pg (27.0-31.0); Mean Corpuscular Volume 93.5 fL (81.0-99.0); Mean Platelet Volume 10.1 fL (7.4-10.4); Platelet Count 135 10^3/uL (130-400); Red Cell Dist. Width 12.6 % (11.5-14.5)
[2023-07-11 06:33] LABS: Blood Urea Nitrogen 13 mg/dl (7-17); Calcium 8.5 mg/dl (8.4-10.2); Carbon Dioxide 28 mmol/L (22-30); Chloride 104 mmol/L (98-107); Glucose 98 mg/dl (70-99); Magnesium 2.5 mg/dl (1.6-2.3); Potassium 4.1 mmol/L (3.5-5.1); Sodium 137 mmol/L (135-145); eGFR > 60.00
--- NOTE | 2023-07-11 07:52 | W.PN.UPDATE ---
Update Note
Progress Note Update
Did see patient and discuss surgery further.
Plan for OR tomorrow for ORIF Left proximal humeral shaft fracture
Please keep NPO at mignight and hold DVT ppx
[2023-07-11] MEDS: TYLENOL 1000 MG PO ×2 (08:27→16:26)
[2023-07-11] MEDS: ULTRAM 25 MG PO (08:31)
--- NOTE | 2023-07-11 12:35 | W.PN.HOSP.TC ---
Today's Communication/Plan
-
OR in am
Repeat CT A/P to eval for RP bleeding
Heme test all stools
EKG preop
Assessment / Plan
Assessment / Plan
Assessment/Plan
# Fall with arm and pubic rami fracture fracture
# Left Humerus Fracture
-Chest abdomen pelvis CT with Partially visualized proximal left humerus fracture. Mildly displaced left superior and inferior pubic rami fractures.
-Hip x-ray with Displaced left superior pubic ramus fracture. Probable nondisplaced left inferior pubic ramus fracture.
-Shoulder x-ray with Left humeral shaft fracture.
-orthopedics consulted, recommendations appreciated -plan for or tomorrow noted.
# Fever on July 08, 2023 PM
-No further fever, and no signs of infection or hemodynamic instability
-Hold off on antibiotics at this time
# Hyponatremia -moderately low on adx
-Consulted nephrology, recommendations appreciated: received 3% saline
- Sodium 137
- Urine Na suggests prerenal stimuli/volume depletion but UOsm doesn't correlate.
# Hypotension likely from dehydration - RESOLVED
-Soft BP in ER -- NOW IMPROVED
-Orthostatic vital signs negative
-Monitor vital signs
-Received IV fluids
# Severe anemia -drop since admission noted. No obvious external bleeding. Check stools for blood. She was noted to be hypotensive with low urine sodium raising concern for volume depletion ,she has pubic rami fracture on fall. Repeated CT
chest and pelvis without contrast to rule out any delayed RP bleeding or pelvic bleeding from the bone. Check iron stores.
#Neuropathy
#DVT prophylaxis
-scd
#CODE status
-full code
Anticipated Discharge: > 48 hours
Subjective/Interval History
-
Date of Service: July 11, 2023
Left arm pain is okay
Objective Data
-
Labs:
Laboratory Results
07/11/23
05:48
WBC 4.0 L
Hgb 8.4 L
Hct 24.3 L
Plt Count 135
Sodium 137
Potassium 4.1
Chloride 104
Carbon Dioxide 28
BUN 13
Creatinine 0.6
Glucose 98
Calcium 8.5
Vital Signs:
Vital Signs
Temp Pulse Resp BP Pulse Ox
98.3 F 74 16 103/60 100
07/11/23 10:59 07/11/23 10:59 07/11/23 10:59 07/11/23 10:59 07/11/23 10:59
I&O
07/10/23 07/11/23 07/12/23
06:59 06:59 06:59
Intake Total 1360 / 1360 1620 / 1620
Balance 1360 / 1360 1620 / 1620
Review of Systems
-
Respiratory: Denies Trouble Breathing
Cardiac: Denies Chest Pain
Abdomen/GI: Denies Nausea or Vomiting
Neuro: Denies Dizzy
Physical Exam
-
General: No Apparent Distress
HEENT: Moist Mucous Membranes
Respiratory: Clear to Auscultation
Cardiac: Regular Rhythm and S1/S2
Musculoskeletal: Other (lt arm not swollen distally ;arm in sling and collar)
Neuro: AO x 3
Data Reviewed
-
Labs: Labs Reviewed by me
--- NOTE | 2023-07-11 13:14 | W.PN.NEPH.PH ---
Today's Communication / Plan
-
- sign off
Assessment/Plan
-
Assessment
Hyponatremia
Left proximal humerus fracture
Left pelvic rami fracture
Hypertension now hypotension
Plan
plan for OR tomorrow AM
Na 137 and stable
patient encouraged to increase osm intake in diet (protein)
nephrology will sign off at this time, please call us back if there are any further questions
-
-
Date of Service: July 11, 2023
CC / HPI / ROS
-
Chief Complaint:
hyponatremia
History of Present Illness:
plts higher
WBC still low
BP stable
Na improving to 137 off hypertonics
Review of Systems:
no CP/SOB
Labs
-
Labs:
WBC 4.0 10^3/uL (4.8-10.8) L 07/11/23 05:48
RBC 2.60 10^6/uL (4.20-5.40) L 07/11/23 05:48
Hgb 8.4 g/dL (12.0-16.0) L 07/11/23 05:48
Hct 24.3 % (37.0-47.0) L 07/11/23 05:48
Plt Count 135 10^3/uL (130-400) 07/11/23 05:48
Sodium 137 mmol/L (135-145) 07/11/23 05:48
Potassium 4.1 mmol/L (3.5-5.1) 07/11/23 05:48
Chloride 104 mmol/L (98-107) 07/11/23 05:48
Carbon Dioxide 28 mmol/L (22-30) 07/11/23 05:48
BUN 13 mg/dl (7-17) 07/11/23 05:48
Creatinine 0.6 mg/dL (0.6-1.0) 03/04/24 05:48
eGFR > 60.00 07/11/23 05:48
Glucose 98 mg/dl (70-99) 07/11/23 05:48
Calcium 8.5 mg/dl (8.4-10.2) 07/11/23 05:48
Albumin 3.4 g/dl (3.5-5.0) L 07/07/23 10:04
Physical Exam
-
Vital Signs:
Vital Signs
Temp Pulse Resp BP Pulse Ox
98.3 F 74 16 103/60 100
07/11/23 10:59 07/11/23 10:59 07/11/23 10:59 07/11/23 10:59 07/11/23 10:59
Cardiovascular:: Regular rate and rhythm
Respiratory:: Bilateral: CTA
Lung Excursion:: Normal
Abdomen:: Nontender and Soft
Bowel Sounds:: Normal
Extremity Edema:: None: Bilateral:
Tinoco Catheter: No
--- NOTE | 2023-07-11 14:45 | CM ---
CM following re: discharge planning.
Reviewed pt's chart, met with pt.
Per MD, plan for OR tomorrow for ORIF Left proximal humeral shaft fracture.
PT and OT will evaluate the pt to determine a level of care at discharge.
D/C plan: uncertain at this time and will be determined after PT/OT evaluations and recommendations.
CM will follow with discharge plan updates as hospitalization progresses
[2023-07-11 15:36] LABS: Hematocrit 25.6 % (37.0-47.0); Hemoglobin 9.1 g/dL (12.0-16.0); Mean Corp Hgb Conc. 35.5 g/dL (33.0-37.0); Mean Corpuscular Hgb 32.4 pg (27.0-31.0); Mean Corpuscular Volume 91.1 fL (81.0-99.0); Mean Platelet Volume 9.9 fL (7.4-10.4); Platelet Count 167 10^3/uL (130-400); Red Blood Cell Count 2.81 10^6/uL (4.20-5.40); Red Cell Dist. Width 12.6 % (11.5-14.5); White Blood Cell Count 4.2 10^3/uL (4.8-10.8)
[2023-07-11 15:51] LABS: APTT 27.3 Sec (23.4-35.0); INR 1.12; PT 14.2 Sec (11.4-14.6)
[2023-07-12] VITALS (23 sets, daily range): BP systolic 82–137; BP diastolic 29–74; PULSE 74–91
[2023-07-12] MEDS: TYLENOL 1000 MG PO ×2 (00:15→08:59)
[2023-07-12] MEDS: ULTRAM 25 MG PO (04:09)
[2023-07-12 04:56] LABS: Hematocrit 26.1 % (37.0-47.0); Mean Corp Hgb Conc. 34.5 g/dL (33.0-37.0); Mean Corpuscular Volume 92.9 fL (81.0-99.0); Mean Platelet Volume 9.9 fL (7.4-10.4); Platelet Count 176 10^3/uL (130-400); Red Blood Cell Count 2.81 10^6/uL (4.20-5.40); Red Cell Dist. Width 12.5 % (11.5-14.5); White Blood Cell Count 4.4 10^3/uL (4.8-10.8)
[2023-07-12 05:22] LABS: Blood Urea Nitrogen 17 mg/dl (7-17); Calcium 8.4 mg/dl (8.4-10.2); Carbon Dioxide 27 mmol/L (22-30); Chloride 106 mmol/L (98-107); Glucose 93 mg/dl (70-99); Potassium 3.8 mmol/L (3.5-5.1); Sodium 136 mmol/L (135-145); eGFR > 60.00
--- NOTE | 2023-07-12 10:33 | W.PN.HOSP.TC ---
Today's Communication/Plan
-
OR today
Assessment / Plan
Assessment / Plan
Assessment/Plan
# Fall with arm and pubic rami fracture fracture
# Left Humerus Fracture
-Chest abdomen pelvis CT with Partially visualized proximal left humerus fracture. Mildly displaced left superior and inferior pubic rami fractures.
-Hip x-ray with Displaced left superior pubic ramus fracture. Probable nondisplaced left inferior pubic ramus fracture.
-Shoulder x-ray with Left humeral shaft fracture.
-orthopedics consulted, recommendations appreciated -plan for OR today
# Acute blood loss anemia -drop since admission noted. No obvious external bleeding. She was noted to be hypotensive with low urine sodium raising concern for volume depletion ,she has pubic rami fracture on fall. Repeated CT chest and
pelvis without contrast shows pelvic fracture associated hematomas. There is a left abductor muscle hematoma as well as left obturator internus muscle hematoma. There is also increased presacral stranding with small amount of fluid consistent with
minimal retroperitoneal hemorrhage but no large fluid collection. No nikhil hemorrhage noted.
HH since yesterday have been stable
Hold on AC for dvt prophylaxis
Check iron stores
# Fever on July 08, 2023 PM
-No further fever, and no signs of infection or hemodynamic instability
-Hold off on antibiotics at this time
# Hyponatremia -moderately low on adx
-Consulted nephrology, recommendations appreciated: received 3% saline
- Sodium 137
- Urine Na suggests prerenal stimuli/volume depletion but UOsm doesn't correlate.
# Hypotension likely from volume /blood loss - RESOLVED
-Soft BP in ER -- NOW IMPROVED
-Orthostatic vital signs negative
-Monitor vital signs
-Received IV fluids
# Preop cardiac eval -patient without any history of CAD or LA. No CHD risk equivalent. Good exercise tolerance prior to admission. METS more than 4. EKG shows a right bundle branch block which is unchanged since admission. No acute ST-T
changes. Patient deemed at low risk for cardiovascular event for proposed surgery. Proceed with the surgery as planned.
#Neuropathy
#DVT prophylaxis
-scd
#CODE status
-full code
Anticipated Discharge: 24 - 48 hours
Subjective/Interval History
-
Date of Service: July 12, 2023
Pain from left manageable.
She also has a pain in the buttock area more so in the left buttock since the fall.
Objective Data
-
Labs:
Laboratory Results
07/12/23
04:33
WBC 4.4 L
Hgb 9.0 L
Hct 26.1 L
Plt Count 176
Sodium 136
Potassium 3.8
Chloride 106
Carbon Dioxide 27
BUN 17
Creatinine 0.6
Glucose 93
Calcium 8.4
Vital Signs:
Vital Signs
Temp Pulse Resp BP Pulse Ox
98.6 F 77 17 100/54 100
07/12/23 07:01 07/12/23 07:01 07/12/23 07:01 07/12/23 07:01 07/12/23 07:01
I&O
07/11/23 07/12/23 07/13/23
06:59 06:59 06:59
Intake Total 1620 / 1620 1530 / 1530
Balance 1620 / 1620 1530 / 1530
Review of Systems
-
Constitutional: Denies Fever
EENT: Denies Sore Throat
Respiratory: Denies Trouble Breathing
Cardiac: Denies Chest Pain
Abdomen/GI: Denies Abdominal Pain, Nausea or Vomiting
Neuro: Denies Dizzy
Physical Exam
-
General: No Apparent Distress
HEENT: Moist Mucous Membranes
Respiratory: Clear to Auscultation
Cardiac: Regular Rhythm and S1/S2
GI: Soft
Musculoskeletal: Other (left arm in collar and sling)
Neuro: AO x 3
Psych: Calm
Data Reviewed
-
Labs: Labs Reviewed by me
[2023-07-12 11:32] LABS: Iron 58 ug/dl (37-170)
[2023-07-12 11:57] LABS: Percent Saturation 24 % (20-50); Total Iron Binding Capacity 237 ug/dl (265-497)
[2023-07-12 12:09] LABS: Ferritin 78.4 ng/ml (11.1-264.0)
--- NOTE | 2023-07-12 14:16 | CM ---
Received cardiac clearance for surgery. Intent to proceed with surgical intervention. Will follow PT recommendations thereafter.
[2023-07-12] MEDS: TYLENOL PO (16:11)
--- NOTE | 2023-07-12 20:28 | OR.RPT ---
Operative Report
Operative Report
Anesthesia Type:
General with peripheral nerve block
Operative Indications:
Displaced left proximal humerus fracture
Operative Findings :
Same with significant comminution
Complications:
None
Implants:
Jarred 3.5 mm long proximal humerus plate
Procedure and Technique:
Open reduction internal fixation left proximal humeral shaft fracture.
INDICATIONS FOR PROCEDURE:
68-year-old healthy female sustained mechanical [place] the movie [place] complaining of groin pain and shoulder pain. She subsequent diagnosed with pubic rami fractures left-sided as well as left proximal humeral shaft fracture I did a long
discussion with patient regarding treatment options including both surgical and nonsurgical options. I did explain to the patient that I think given the proximal location of her fracture, it would be difficult to control with a fracture brace. She
is quite active and works out and goes to the gym several days a week. Given the patient's activity level and fracture pattern, we mutually agreed to proceed with open reduction internal fixation left proximal humeral shaft fracture. We discussed
risks benefits and alternatives to surgery. Discussed the usual expected perioperative postoperative course. After discussion, written informed consent was obtained
OPERATIVE PROCEDURE:
Patient was seen and identified in the preoperative holding area. Operative extremity was marked. She was taken to the operating room where peripheral nerve block was administered. General anesthesia was then administered. The head of the bed
was then elevated into a slight beachchair position. Operative extremity was then prepped and draped in the normal sterile fashion. Timeout was performed again identifying the correct operative extremity. Preoperative antibiotics were addressed.
Standard deltopectoral approach to the shoulder was taken. Sharp dissection was carried through skin subcutaneous tissues. Hemostasis was achieved electrocautery. Clavipectoral fascia was incised. Approach was taken distally and biceps was taken
medially. Fracture site was identified. There is noted to be quite significant comminution. There was noted to be a essentially free-floating fragment posteriorly. Bone quality was noted to be quite poor. Given the significant comminution and
poor bone quality, decision was made to bridge the fracture rather than attempt any lagging of fracture pieces. The plate was placed and secured proximally. Under fluoroscopic guidance, length and rotation were improved. There was some difficulty
in obtaining appropriate length. A push pull technique was then utilized that did get the fracture out to length. Again there is noted to be significant comminution with large fracture fragments posteriorly that were unable to be controlled. When
appropriate length and rotation was achieved, 3 bicortical screws were placed in appropriate length distal to the fracture. Orthogonal fluoroscopic images showed appropriate length and rotation. It was noted that on fluoroscopic images, the
proximal extent of the proximal humerus plate did appear somewhat proximal. Under live fluoroscopy, arm was taken through abduction and there was no impingement noted. On visual inspection the height of the plate appeared appropriate relative to
the height of the humeral head. Satisfied with the extent of surgery, wound was copiously irrigated with normal saline solution. We had taken down anterior insertion of the deltoid to place the plate distally and this was repaired to the plate.
Deep interval was closed with 0 Vicryl. Subcutaneous tissues were closed with 2-0 Vicryl. Vanco powder was placed in the wound prior to closure. Skin was closed with makenzie. Aquacel dressing was applied. Anesthesia was reversed patient was
taken to PACU in stable condition. Postoperative plans include nonweightbearing to the operative extremity in a sling. Plan to see patient back 2 weeks for repeat radiographs and plan removal of makenzie
Disposition:
PACU stable condition
[2023-07-12 21:35] LABS: Hematocrit 22.8 % (37.0-47.0); Hemoglobin 8.1 g/dL (12.0-16.0)
--- NOTE | 2023-07-12 23:01 | TRANSFER ---
Report received from [employer] Anne. Pt arrived to 2S at 2255 LUE in sling, aquacell w scant drainage distally, LUE is ecchymotic and edematous, +CMS to left hand. VSS, no c/o pain. Family at the beside, bed in lowest position. Assessment ongoing.
[2023-07-12] MEDS: NSS IV (23:16)
[2023-07-13] VITALS (10 sets, daily range): BP systolic 87–154; BP diastolic 44–99; PULSE 78–99; O2SAT 99
[2023-07-13] MEDS: TYLENOL PO (01:00)
[2023-07-13] MEDS: ANCEF 5 IV ×2 (01:06→10:08)
[2023-07-13 05:09] LABS: Mean Corp Hgb Conc. 34.6 g/dL (33.0-37.0); Mean Corpuscular Volume 89.7 fL (81.0-99.0); Platelet Count 159 10^3/uL (130-400); Red Cell Dist. Width 14.9 % (11.5-14.5); White Blood Cell Count 6.3 10^3/uL (4.8-10.8)
[2023-07-13] MEDS: NSS 1000 IV ×2 (06:26→16:56)
[2023-07-13] MEDS: TYLENOL 1000 MG PO ×3 (08:30→23:21)
--- NOTE | 2023-07-13 10:16 | W.PN.HOSP.TC ---
Today's Communication/Plan
-
Follow H&H
Follow PT recommendations
DC planning
Assessment / Plan
Assessment / Plan
Assessment/Plan
# Fall with arm and pubic rami fracture fracture
# Left Humerus Fracture s/p ORIF 07/11
-Chest abdomen pelvis CT with Partially visualized proximal left humerus fracture. Mildly displaced left superior and inferior pubic rami fractures.
-Hip x-ray with Displaced left superior pubic ramus fracture. Probable nondisplaced left inferior pubic ramus fracture.
-Shoulder x-ray with Left humeral shaft fracture.
# Postop acute blood loss anemia - s/p 2 units of blood transfusion . Follow HH.
# Acute blood loss anemia -drop since admission noted. No obvious external bleeding. She was noted to be hypotensive with low urine sodium raising concern for volume depletion ,she has pubic rami fracture on fall. Repeated CT chest and
pelvis without contrast shows pelvic fracture associated hematomas. There is a left abductor muscle hematoma as well as left obturator internus muscle hematoma. There is also increased presacral stranding with small amount of fluid consistent with
minimal retroperitoneal hemorrhage but no large fluid collection. No nikhil hemorrhage noted.
HH had been stable prior to sx
Hold on AC for dvt prophylaxis
iron stores are adequate
# Fever on July 08, 2023 PM
-No further fever, and no signs of infection or hemodynamic instability
-Hold off on antibiotics at this time
# Hyponatremia -moderately low on adx
-Consulted nephrology, recommendations appreciated: received 3% saline
- Sodium 137
- Urine Na suggests prerenal stimuli/volume depletion but UOsm doesn't correlate.
# Hypotension likely from volume /blood loss - RESOLVED
-Soft BP in ER -- NOW IMPROVED
-Orthostatic vital signs negative
-Monitor vital signs
-Received IV fluids
#Neuropathy
#DVT prophylaxis
-scd
#CODE status
-full code
PT /OT eval
Patient with multiple fracture wishes to go to rehab as she does not feel safe at home with her dog and she has steps to navigate at home.
Anticipated Discharge: Within 24 hours
Subjective/Interval History
-
Date of Service: July 13, 2023
Left arm is painful with movement. While in sling she is comfortable. She also noticed good amount swelling in the left arm after surgery.
Pain from pelvic area is okay.
Objective Data
-
Labs:
Laboratory Results
07/13/23
04:47
WBC 6.3
Hgb 9.0 L
Hct 26.0 L
Plt Count 159
Vital Signs:
Vital Signs
Temp Pulse Resp BP Pulse Ox
98.9 F 56 18 152/83 99
07/13/23 07:10 07/13/23 07:10 07/13/23 07:10 07/13/23 07:10 07/13/23 08:00
I&O
07/12/23 07/13/23 07/14/23
06:59 06:59 06:59
Intake Total 1530 / 1530 2325 / 2325
Balance 1530 / 1530 2325 / 2325
Review of Systems
-
Constitutional: Denies Fever
Respiratory: Denies Trouble Breathing
Cardiac: Denies Chest Pain
Abdomen/GI: Denies Nausea or Vomiting
Neuro: Denies Dizzy
Physical Exam
-
General: No Apparent Distress
HEENT: Moist Mucous Membranes
Respiratory: Clear to Auscultation
Cardiac: Regular Rhythm and S1/S2
Musculoskeletal: Edema, Left Upper Extrem (with bruising; palpable radial artery)
Neuro: AO x 3
Psych: Calm
Data Reviewed
-
Labs: Labs Reviewed by me
--- NOTE | 2023-07-13 15:38 | CM ---
Met with patient and and discussed discharge plan of care. Therapy has recommended Acute Rehab. Discussed the difference between acute and subacute. Patient and will discuss and choose a rehab.
[2023-07-13] MEDS: ULTRAM 25 MG PO (17:00)
--- NOTE | 2023-07-13 17:53 | W.PN.ORTHO ---
Today's Communication / Plan
-
68-year-old female postop day 1 status post open reduction internal fixation left comminuted proximal humeral shaft fracture
Nonweightbearing left upper extremity in sling
PT OT: Okay for passive range of motion only to include pendulum exercises
Pain control
Medical management per primary team
Plan to follow-up with myself in the office in 2 weeks repeat evaluation with planned removal of makenzie. Please reach out with any questions or concerns
Subjective
.
.:
Patient resting comfortably in chair this morning upon examination. Reports the pain is very well-controlled and really not complaining much in terms of pain. She denies any numbness or tingling. She denies any motor deficits distally.
Vital Signs and Labs
.
Vital Signs and Labs:
Lab Results
07/13/23 04:47
07/12/23 04:33
Temp Pulse Resp BP Pulse Ox
98.7 F 84 18 127/62 97
07/13/23 15:23 07/13/23 15:23 07/13/23 15:23 07/13/23 15:23 07/13/23 15:23
PT 14.2 Sec (11.4-14.6) 07/11/23 15:24
INR 1.12 07/11/23 15:24
Physical Exam
-
Musculoskeletal left upper extremity
Dressing in place without evidence of bloody drainage
Sling in place
Range of motion testing deferred
Sensation tact light touch in all distributions distally including radial nerve distributions
Motor intact all distributions distally including intact wrist extension and thumb retropulsion
[2023-07-14 03:05] VITALS: BP 121/79
[2023-07-14] MEDS: NSS IV (04:58)
[2023-07-14 06:10] LABS: Hemoglobin 8.2 g/dL (12.0-16.0); Mean Corp Hgb Conc. 34.2 g/dL (33.0-37.0); Mean Corpuscular Hgb 31.1 pg (27.0-31.0); Mean Corpuscular Volume 90.9 fL (81.0-99.0); Mean Platelet Volume 9.6 fL (7.4-10.4); Platelet Count 177 10^3/uL (130-400); Red Blood Cell Count 2.64 10^6/uL (4.20-5.40); Red Cell Dist. Width 15.4 % (11.5-14.5); White Blood Cell Count 6.4 10^3/uL (4.8-10.8)
[2023-07-14 07:04] VITALS: BP 111/60; BP 112/52; BP 121/63; PULSE 80; PULSE 85; PULSE 87
[2023-07-14 07:32] VITALS: BP 108/57
[2023-07-14] MEDS: TYLENOL 1000 MG PO ×2 (08:55→16:55)
--- NOTE | 2023-07-14 12:36 | CM ---
Addendum entered by Patito Perez 07/14/23 14:32:
[facility] does not feel appropriate for Acute. Sent referral to [address] [place], [place] [address] and follow-up with SNF's.
Original Note:
Rec for Acute Rehab. Preference [facility] at . Referral sent.
--- NOTE | 2023-07-14 14:14 | W.PN.HOSP.TC ---
Today's Communication/Plan
-
dc
Assessment / Plan
Assessment / Plan
Assessment/Plan
# Fall with arm and pubic rami fracture fracture
# Left Humerus Fracture s/p ORIF 07/11
-Chest abdomen pelvis CT with Partially visualized proximal left humerus fracture. Mildly displaced left superior and inferior pubic rami fractures.
-Hip x-ray with Displaced left superior pubic ramus fracture. Probable nondisplaced left inferior pubic ramus fracture.
-Shoulder x-ray with Left humeral shaft fracture.
# Postop acute blood loss anemia - s/p 2 units of blood transfusion . Follow HH. Aim to keep HH >8
# Acute blood loss anemia -drop since admission noted. No obvious external bleeding. She was noted to be hypotensive with low urine sodium raising concern for volume depletion ,she has pubic rami fracture on fall. Repeated CT chest and
pelvis without contrast shows pelvic fracture associated hematomas. There is a left abductor muscle hematoma as well as left obturator internus muscle hematoma. There is also increased presacral stranding with small amount of fluid consistent with
minimal retroperitoneal hemorrhage but no large fluid collection. No nikhil hemorrhage noted.
HH had been stable prior to sx
CW seq teds
iron stores are adequate
# Fever on July 08, 2023 PM
-No further fever, and no signs of infection or hemodynamic instability
-Hold off on antibiotics at this time
# Hyponatremia -moderately low on adx
-Consulted nephrology, recommendations appreciated: received 3% saline
- Sodium 137
- Urine Na suggests prerenal stimuli/volume depletion but UOsm doesn't correlate.
# Hypotension likely from volume /blood loss - RESOLVED
-Soft BP in ER -- NOW IMPROVED
-Orthostatic vital signs negative
-Monitor vital signs
-Received IV fluids
#Neuropathy
#DVT prophylaxis
-scd
#CODE status
-full code
Medically stable for rehab
DW Physiatry - may not tolearte acute rehab due to pain issues.
DW CM - to look into SNF
Anticipated Discharge: Today
Subjective/Interval History
-
Date of Service: July 14, 2023
Left arm fracture repair site pain improving
Pelvic pain is ok
Objective Data
-
Labs:
Laboratory Results
07/14/23
04:21
WBC 6.4
Hgb 8.2 L
Hct 24.0 L
Plt Count 177
Vital Signs:
Vital Signs
Temp Pulse Resp BP Pulse Ox
99.2 F 81 18 108/57 100
07/14/23 07:32 07/14/23 07:32 07/14/23 07:32 07/14/23 07:32 07/14/23 07:32
I&O
07/13/23 07/14/23 07/15/23
06:59 06:59 06:59
Intake Total 2325 / 2325 1140 / 1140
Output Total 600 / 600
Balance 2325 / 2325 540 / 540
Review of Systems
-
Constitutional: Denies Fever
Respiratory: Denies Trouble Breathing
Cardiac: Denies Chest Pain
Abdomen/GI: Denies Abdominal Pain, Nausea or Vomiting
Neuro: Denies Dizzy
Physical Exam
-
General: No Apparent Distress
HEENT: Moist Mucous Membranes
Respiratory: Clear to Auscultation
Cardiac: Regular Rhythm and S1/S2
GI: Soft
Musculoskeletal: Edema, Right Upper Extrem
Neuro: AO x 3
Psych: Calm
Data Reviewed
-
Labs: Labs Reviewed by me
--- NOTE | 2023-07-14 14:20 | W.DS.TRANS ---
DC Summary - [employer]
-
Discharge Instructions:
Discharge Diagnosis/Procedures Left humerus fracture status post ORIF
Pelvic fracture status post fall
Anemia secondary to postop blood loss, pelvic
fracture, mild RP bleed.
Diet Regular
Activity As tolerated
Driving Restrictions Not until seen by your Dr
Bathing Restrictions None
Blood Work CBC in a week
Other Services PT,OT
Instructions:
Stand-Alone Forms:
Changes to Home Medications: Yes
Discharge Medications:
DC Medications w/original date entered in [employer]
Beet Powder 1 dose PO .MID-DAY Supplement 07/07/23
ICaps 1 tab PO BID Supplement 07/07/23
Vitamin C With Essie Hips 1 tab PO DAILY@1400 Supplement 07/07/23
cyanocobalamin (vitamin B-12) 1,000 mcg/mL oral drops 1 ml PO DAILY Supplement 07/07/23
acetaminophen 500 mg tablet (Tylenol Extra Strength) 1,000 mg PO Q8 #1 tab 07/14/23
docusate sodium 100 mg capsule 100 mg PO BID #1 cap 07/14/23
oxycodone 5 mg tablet 5 mg PO Q4HPRN PRN severe pain #12 tabs 07/14/23
tramadol 50 mg tablet 25 mg PO Q6HPRN PRN moderate pain #12 tabs 07/14/23
Home Medication Changes
New medication-tramadol, oxycodone, Colace
Pending Results: No
--- NOTE | 2023-07-14 15:19 | CON.MD ---
Documented by User: Maria A Cullen PA-C 07/15/23 16:37
Consultation - Medical
-
Referring Provider: Manjit Tello
Chief Complaint: Ambulatory Dysfunction, Debility
History of Present Illness: 68-year-old female with PMH of ( left hip replacement, Left patella fracture, neuropathy, mechanical falls) presented to the ED [place] She tripped onto the carpet and fell on her left side. She
was complaining of left shoulder and left hip. Hip x-ray with Displaced left superior pubic ramus fracture and nondisplaced left inferior pubic ramus fracture and shoulder x-ray with Left humeral shaft fracture. Patient would like to go to a SNF,
discussed with orthopedics surgery. Since she is very active and goes to the gym several days a week and given her fracture pattern she underwent an open reduction internal fixation of the left proximal humeral shaft fracture on 07/12/2023.�Postop
acute� blood loss anemia - s/p 2 units of blood transfusion . Follow HH. Aim to keep HH >8.
Noted to be hypotensive with low urine sodium raising concern for volume depletion.� Repeated CT chest and pelvis without contrast shows pelvic fracture associated hematomas.� There is a left abductor muscle hematoma as well as left obturator
internus muscle hematoma.� There is also increased presacral stranding with small amount of fluid consistent with minimal retroperitoneal hemorrhage but no large fluid collection.� No nikhil hemorrhage noted.
Past Medical History: left hip replacement, neuropathy, h/o left patella fracture
Procedure History: left hip replacement, ORIF of left proximal humerus shaft fracture
Family History: Heart disease, cancer
Social History:
Functional Level Premorbidly: Independent with all activities
Functional Level Currently: Max assist x 1 for supine to sit as patient was unable to problem solve mobility, assist for lower extremities and trunk, cues for technique throughout. Sit to stand transfer supervision, patient ambulated 3 feet x 2
with madeleine walker and min assist x 1 for safety. Decreased bilateral foot clearance, antalgic lower extremity gait pattern bilaterally. Toileting�mod assist, upper extremity self-care�dependent, lower extremity self-care�max assist.
Tobacco: Denies
Alcohol: Denies
Drug use: Denies
Lives with: Spouse
24-hour assistance available:
Number of floors: 2
# steps to enter: 1 step to front door and 1 step inside
# steps to second floor: FF
Potential First floor set up:1/2 bath
Driving: Yes
Occupation: Retired teacher
�
Allergies:
Allergy/AdvReac Type Severity Reaction Status Date / Time
No Known Allergies Allergy Unverified 07/06/23 19:05
Review of Systems:
Constitutional: (x) Normal _
Eye: (x) Normal _
Ear/Nose/Throat: (x) Normal _
Respiratory: (x) Normal _
Cardiovascular: (x) Normal _
Gastrointestinal: (x) Normal _
Genitourinary: (x) Normal _
Musculoskeletal: (x) ORIF left prox. Humeral shaft, fractured pubic rami
Integumentary: (x) Normal _
Neurologic: (x) Normal _
Psychiatric: (x) Normal _
Endocrine: (x) Normal _
Hematologic/Lymphatic: (x) Normal _
Allergic/Immunologic: (x) Normal _
Medications:
Active Current Visit Medication List
Category Date Time Status
Acetaminophen [Tylenol] Med 07/09/23 19:00 Active
1,000 mg PO Q8
Docusate Sodium [Colace] Med 07/13/23 08:00 Active
100 mg PO BID
Flush (0.9% Sodium Chloride) [Flush (Nss)] Med 07/08/23 18:00 Active
See Dose Instructions IV PER PROTOCOL
HYDROmorphone [Dilaudid] Med 07/12/23 20:25 Active
0.25 mg IV Q1HPRN PRN
Mag Hydrox/Al Hydrox/Simeth [Maalox] Med 07/12/23 20:25 Active
30 ml PO Q4HPRN PRN
Ondansetron Injectable [Zofran] Med 07/12/23 20:25 Active
4 mg IV Q6HPRN PRN
Oxycodone [Roxicodone] Med 07/12/23 20:25 Active
5 mg PO Q4HPRN PRN
Tramadol HCl [Ultram] Med 07/10/23 13:56 Active
25 mg PO Q6HPRN PRN
Vitals:
Temp Pulse Resp BP Pulse Ox
98.4 F 80 18 94/68 99
07/15/23 07:39 07/15/23 07:39 07/15/23 07:39 07/15/23 07:39 07/15/23 08:00
Actual Weight 72.6 kg
Physical Exam:
General Appearance/Observation: Well-developed, well-nourished individual in no apparent distress.
Pain/Comfort Assessment: pelvic when moving. No pain when seated
Mood/Affect: Appropriate, pleasant
Integumentary/Operative Site:left Upper extremity in sling
�� Pressure Ulcer Evaluation: absent over heels.
��
�� Other Type of Wound: absent
��
Eyes: Conjunctiva/Lids: normal ��� Pupils: pupils equal round and reactive to light and Accommodation
Ears/Nose/Throat: oral mucosa moist,� throat clear.������������ Lips/Teeth/Gums: normal
Neck: No muscle spasm or tenderness
Cardiovascular: Heart: regular, no murmur
Pulses: dorsalis pedis 1+ bilaterally
Respiratory: Respiratory Effort/Chest Expansion: normal ������ Auscultation: Clear to auscultation bilaterally
Gastrointestinal: abdomen not tender, no distension, normal abdominal bowel sounds
Genitourinary: no [place]
Extremities: Edema: feet 1+ Cyanosis: None Trophic changes: None
Neurology Exam:
Orientation: Alert, Oriented to self, Time, Place
Memory: Intact for immediately medical concerns
Higher cortical function
Repetition: Intact
Comprehension: Intact
Two step command: Intact
Naming: Intact
Cranial Nerves:
�� CNII: Pupillary light reflex: Intact��� Visual Field: Intact
�� CN III, IV, : Extraocular muscles: Intact
�� CN VII: Facial movement: Symmetric
�� CN VIII: Hearing: Normal
�� CN IX/X: Speech & swallow: Normal, Position of Uvula: Midline
�� CN XI: Shoulder shrug: Symmetric
�� CN XII: Tongue protrusion: Midline
Sensory:
�� Light touch: Intact in right upper and lower extremities. Left not tested in sling
��
Reflexes:
�� Biceps: 2+right
�� Brachioradialis: 2+ right
�� Triceps: 2+ right
�� Patellar: 2+ bilaterally
�� Achilles: 2+ bilaterally
�� Marleny: Negative bilaterally
Musculoskeletal:
Motor: (Manual muscle scale 0-5)
Muscle SA EF WE EE FF FA HF KE DF EHL PF
Right� 5 5 5 5 5 5 3+ pain 3 + pain 5 5 5
Left 5 5 5 5 5
Tone: Normal in all extremities, left UE not tested in sling
Range of Motion: normal with ankles/feet, right UE, deferred other groups due to pain
Lab Results
Labs
WBC 6.4 10^3/uL (4.8-10.8) 07/14/23 04:21
RBC 2.64 10^6/uL (4.20-5.40) L 07/14/23 04:21
Hgb 8.2 g/dL (12.0-16.0) L 07/14/23 04:21
Hct 24.0 % (37.0-47.0) L 07/14/23 04:21
MCV 90.9 fL (81.0-99.0) 07/14/23 04:21
MCH 31.1 pg (27.0-31.0) H 07/14/23 04:21
MCHC 34.2 g/dL (33.0-37.0) 07/14/23 04:21
RDW 15.4 % (11.5-14.5) H 07/14/23 04:21
Plt Count 177 10^3/uL (130-400) 07/14/23 04:21
MPV 9.6 fL (7.4-10.4) 07/14/23 04:21
Abs Immat Gran (auto) 0.0 10^3/uL (0-0.05) 07/07/23 10:04
Absolute Neuts (auto) 4.8 10^3/uL (1.4-6.5) 07/07/23 10:04
Absolute Lymphs (auto) 0.5 10^3/uL (1.2-3.4) L 07/07/23 10:04
Absolute Monos (auto) 0.5 10^3/uL (0.1-0.6) 07/07/23 10:04
Absolute Eos (auto) 0.0 10^3/uL (0-0.7) 07/07/23 10:04
Absolute Basos (auto) 0.0 10^3/uL (0-0.2) 07/07/23 10:04
Immature Gran % 0.3 % (0-0.5) 07/07/23 10:04
Neutrophils % 82.9 % (42.2-75.2) H 07/07/23 10:04
Lymphocytes % 8.3 % (20.5-51.1) L 07/07/23 10:04
Monocytes % 8.0 % (1.7-9.3) 07/07/23 10:04
Eosinophils % 0.0 % (0-6) 07/07/23 10:04
Basophils % 0.5 % (0-2) 07/07/23 10:04
Nucleated RBC % 0 % 07/07/23 10:04
PT 14.2 Sec (11.4-14.6) 07/11/23 15:24
INR 1.12 07/11/23 15:24
APTT 27.3 Sec (23.4-35.0) 07/11/23 15:24
Sodium 136 mmol/L (135-145) 07/12/23 04:33
Potassium 3.8 mmol/L (3.5-5.1) 07/12/23 04:33
Chloride 106 mmol/L (98-107) 07/12/23 04:33
Carbon Dioxide 27 mmol/L (22-30) 07/12/23 04:33
BUN 17 mg/dl (7-17) 07/12/23 04:33
Creatinine 0.6 mg/dL (0.6-1.0) 07/12/23 04:33
Estimated Creat Clear Cancelled 07/08/23 20:00
eGFR > 60.00 07/12/23 04:33
Glucose 93 mg/dl (70-99) 07/12/23 04:33
Calcium 8.4 mg/dl (8.4-10.2) 07/12/23 04:33
Magnesium 2.5 mg/dl (1.6-2.3) H 07/11/23 05:48
Iron 58 ug/dl (37-170) 07/12/23 04:33
TIBC 237 ug/dl (265-497) L 07/12/23 04:33
% Saturation 24 % (20-50) 07/12/23 04:33
Ferritin 78.4 ng/ml (11.1-264.0) 07/12/23 04:33
Total Bilirubin 1.3 mg/dl (0.2-1.3) 07/07/23 10:04
AST 29 U/L (14-36) 07/07/23 10:04
ALT 20 U/L (0-35) 07/07/23 10:04
Alkaline Phosphatase 89 U/L (38-126) 07/07/23 10:04
Troponin I < 0.012 ng/ml 07/07/23 12:23
Total Protein 5.8 g/dl (6.3-8.2) L 07/07/23 10:04
Albumin 3.4 g/dl (3.5-5.0) L 07/07/23 10:04
Urine Color Yellow 07/08/23 20:
Urine Clarity Clear (Clear) 07/08/23 20:
Urine pH 8.0 (5.0-9.0) 07/08/23 20:
Ur Specific [place] 1.020 (<1.030) 07/08/23 20:
Urine Ketones Negative (Negative) 07/08/23 20:
Urine Occult Blood Negative (Negative) 07/08/23 20:
Urine Nitrite Negative (Negative) 07/08/23 20:
Urine Bilirubin Negative (Negative) 07/08/23:
Urine Urobilinogen Negative (Neg - 1+) 07/08/23 20:
Ur Leukocyte Esterase Negative (Negative) 07/08/23 20:
Urine Osmolality 133 mOsm/kg (300-900) L 07/08/23 20:31
Urine Creatinine 22.500 mg/dl 07/08/23 20:31
Urine Sodium < 5 mmol/L (30-90) L 07/08/23 20:
Urine Glucose Negative (Negative) 07/08/23 20:31
Urine Albumin Negative (Neg - Trace) 07/08/23 20:31
Blood Type B POS 07/12/23 18:00
Blood Type Confirm B POS 07/07/23 12:23
Antibody Screen Negative (Negative) 07/12/23 18:00
Crossmatch IS Only See Detail 07/12/23 18:00
�
Diagnostic Results: as per HPI
Assessment
68-year-old female with PMH of ( left hip replacement, neuropathy, mechanical falls) [place] the [place] She tripped onto the carpet and fell on her left side. She was complaining of left shoulder and left hip.
Hip x-ray with Displaced left superior pubic ramus fracture and nondisplaced left inferior pubic ramus fracture and shoulder x-ray with Left humeral shaft fracture. Patient would like to go to a SNF, discussed with orthopedics surgery. Since she is
very active and goes to the gym several days a week and given her fracture pattern she underwent an open reduction internal fixation of the left proximal humeral shaft fracture on 07/12/2023.�Postop acute� blood loss anemia - s/p 2 units of blood
transfusion . Follow HH. Aim to keep HH >8.
Plan
PT/OT to increase independence with ADLs, improve balance, coordination, endurance, strength, mobility, community reintegration, decreased burden of care on others and family education.
Debility: secondary to Pubic rami fracture and post left proximal humeral shaft ORIF- PT, OT
Pubic rami fracture: Pain control, monitor left abductor and obturator internus muscles hematomas, ice pack as needed
HTN: continue medications, monitor closely
HLD: Statin
Hypotension: Resolved. Was most likely from volume/blood loss. Monitor vital signs, IV fluids as needed.
Bilateral lower extremity edema: Consider TEDS as able. Increased fluid will cause more force requirement to move lower extremities which requires more strength and increases fatigue.
Pressure ulcers:� Vitamin C, zinc, multivitamin.� Weight shifts in wheelchair and bed.� Roho cushion.� Pressure-relief boots.� Lotrimin to fungal rash over buttocks and inguinal region.
Anemia: Likely multifactorial.�post surgery. Continue to monitor. Hgb 8.2
Hyponatremia. Received 3% saline. normalized-136
Psych: Psychology consult.� Monitor mood, adjust medications as needed.
Skin: monitor for pressure sores/rashes/lesions.
Pain: acetaminophen or Tramadol, oxycodone as needed. D/C IV pain med as tolerated
Bowel: Colace and Senna, PRN bisacodyl.
Bladder: Time void, PVRs, PRN straight cath.
GI Prophylaxis: Pantoprazole
DVT Prophylaxis: mechanical
Pulmonary: Incentive spirometry
Safety: Continue to reinforce assistance with all transfers.
Code Status:� Full code
Dispo (date/plan/equipment needs): Home with family care.� Social history reviewed.
Functional and Medical Goals: Modified Independent with ADL�s, ambulation, transfers
Summary of recommendations:
- Discharge Destination: SNF per patient's preference as she is not capable of undergoing intense 3-hour therapy in an acute setting.
Debility: secondary to Pubic rami fracture and post left proximal humeral shaft ORIF- PT, OT
Pubic rami fracture: Pain control, monitor left abductor and obturator internus muscles hematomas, ice pack as needed.
Bowel: Colace and Senna, PRN bisacodyl.
Bladder: Time void, PVRs, PRN straight cath.
DVT Prophylaxis: mechanical
Pulmonary: Incentive spirometry
Safety: Continue to reinforce assistance with all transfers. Use of walker
Code Status:� Full code
Thank you for allowing me to care for your patient. Please contact me with any questions or concerns.

Documented by User: Mark Osorio MD 07/15/23 17:33
Consultation - Medical
-
Referring Provider: Manjit Tello
Chief Complaint: Ambulatory Dysfunction, Debility
History of Present Illness: 68-year-old female with PMH of (left hip replacement, Left patella fracture, neuropathy, mechanical falls) presented to the ED [place]. She tripped onto the carpet and fell on her left side. She
was complaining of left shoulder and left hip. Hip x-ray with Displaced left superior pubic ramus fracture and nondisplaced left inferior pubic ramus fracture and shoulder x-ray with Left humeral shaft fracture. Patient would like to go to a SNF,
discussed with orthopedics surgery. Since she is very active and goes to the gym several days a week and given her fracture pattern she underwent an open reduction internal fixation of the left proximal humeral shaft fracture on 07/12/2023.�Postop
acute� blood loss anemia - s/p 2 units of blood transfusion . Follow HH. Aim to keep HH >8.
Noted to be hypotensive with low urine sodium raising concern for volume depletion.� Repeated CT chest and pelvis without contrast shows pelvic fracture associated hematomas.� There is a left abductor muscle hematoma as well as left obturator
internus muscle hematoma.� There is also increased presacral stranding with small amount of fluid consistent with minimal retroperitoneal hemorrhage but no large fluid collection.� No nikhil hemorrhage noted.
Past Medical History: left hip replacement, neuropathy, h/o left patella fracture
Procedure History: left hip replacement, ORIF of left proximal humerus shaft fracture
Family History: Heart disease, cancer
Social History:
Functional Level Premorbidly: Independent with all activities
Functional Level Currently: Max assist x 1 for supine to sit as patient was unable to problem solve mobility, assist for lower extremities and trunk, cues for technique throughout. Sit to stand transfer supervision, patient ambulated 3 feet x 2
with madeleine walker and min assist x 1 for safety. Decreased bilateral foot clearance, antalgic lower extremity gait pattern bilaterally. Toileting�mod assist, upper extremity self-care�dependent, lower extremity self-care�max assist.
Tobacco: Denies
Alcohol: Denies
Drug use: Denies
Lives with: Spouse
24-hour assistance available:
Number of floors: 2
# steps to enter: 1 step to front door and 1 step inside
# steps to second floor: FF
Potential First floor set up:1/2 bath
Driving: Yes
Occupation: Retired teacher
�
Allergies:
Allergy/AdvReac Type Severity Reaction Status Date / Time
No Known Allergies Allergy Unverified 07/06/23 19:05
Review of Systems:
Constitutional: (x) Normal _
Eye: (x) Normal _
Ear/Nose/Throat: (x) Normal _
Respiratory: (x) Normal _
Cardiovascular: (x) Normal _
Gastrointestinal: (x) Normal _
Genitourinary: (x) Normal _
Musculoskeletal: (x) ORIF left prox. Humeral shaft, fractured pubic rami
Integumentary: (x) Normal _
Neurologic: (x) Normal _
Psychiatric: (x) Normal _
Endocrine: (x) Normal _
Hematologic/Lymphatic: (x) Normal _
Allergic/Immunologic: (x) Normal _
Medications:
Active Current Visit Medication List
Category Date Time Status
Acetaminophen [Tylenol] Med 07/09/23 19:00 Active
1,000 mg PO Q8
Docusate Sodium [Colace] Med 07/13/23 08:00 Active
100 mg PO BID
Flush (0.9% Sodium Chloride) [Flush (Nss)] Med 07/08/23 18:00 Active
See Dose Instructions IV PER PROTOCOL
HYDROmorphone [Dilaudid] Med 07/12/23 20:25 Active
0.25 mg IV Q1HPRN PRN
Mag Hydrox/Al Hydrox/Simeth [Maalox] Med 07/12/23 20:25 Active
30 ml PO Q4HPRN PRN
Ondansetron Injectable [Zofran] Med 07/12/23 20:25 Active
4 mg IV Q6HPRN PRN
Oxycodone [Roxicodone] Med 07/12/23 20:25 Active
5 mg PO Q4HPRN PRN
Tramadol HCl [Ultram] Med 07/10/23 13:56 Active
25 mg PO Q6HPRN PRN
Vitals:
Temp Pulse Resp BP Pulse Ox
98.4 F 80 18 94/68 99
07/15/23 07:39 07/15/23 07:39 07/15/23 07:39 07/15/23 07:39 07/15/23 08:00
Actual Weight 72.6 kg
Physical Exam:
General Appearance/Observation: Well-developed, well-nourished female in no apparent distress.
Pain/Comfort Assessment: pelvic when moving. No pain when seated
Mood/Affect: Appropriate, pleasant
Integumentary/Operative Site:left Upper extremity in sling
�� Pressure Ulcer Evaluation: absent over heels.
��
Eyes: Conjunctiva/Lids: normal ��� Pupils: pupils equal round and reactive to light and Accommodation
Ears/Nose/Throat: oral mucosa moist,� throat clear.������������ Lips/Teeth/Gums: normal
Neck: No muscle spasm or tenderness
Cardiovascular: Heart: regular, no murmur
Pulses: dorsalis pedis 1+ bilaterally
Respiratory: Respiratory Effort/Chest Expansion: normal ������ Auscultation: Clear to auscultation bilaterally
Gastrointestinal: abdomen not tender, no distension, normal abdominal bowel sounds
Genitourinary: no [place]
Extremities: Edema: feet 1+ Cyanosis: None Trophic changes: None
Neurology Exam:
Orientation: Alert, Oriented to self, Time, Place
Memory: Intact for recent medical concerns
Repetition: Intact
Comprehension: Intact
Two step command: Intact
Naming: Intact
Cranial Nerves:
�� CNII: Pupillary light reflex: Intact��� Visual Field: Intact
�� CN III, IV, : Extraocular muscles: Intact
�� CN VII: Facial movement: Symmetric
�� CN VIII: Hearing: Normal
�� CN IX/X: Speech & swallow: Normal, Position of Uvula: Midline
�� CN XI: Shoulder shrug: Symmetric
�� CN XII: Tongue protrusion: Midline
Sensory:
�� Light touch: Intact in right upper and lower extremities. Left not tested in sling
��
Reflexes:
�� Biceps: 2+right
�� Brachioradialis: 2+ right
�� Triceps: 2+ right
�� Patellar: 2+ bilaterally
�� Achilles: 2+ bilaterally
�� Marleny: Negative bilaterally
Musculoskeletal: Motor: (Manual muscle scale 0-5)
Muscle SA EF WE EE FF FA HF KE DF EHL PF
Right� 5 5 5 5 5 5 5 5 5 5 5
Left 5 3+ pain 3+ pain 5 5 5
Tone: Normal in all extremities, left UE not tested in sling
Range of Motion: normal with ankles/feet, right UE, deferred other groups due to pain
Lab Results
Labs
WBC 6.4 10^3/uL (4.8-10.8) 07/14/23 04:21
RBC 2.64 10^6/uL (4.20-5.40) L 07/14/23 04:21
Hgb 8.2 g/dL (12.0-16.0) L 07/14/23 04:21
Hct 24.0 % (37.0-47.0) L 07/14/23 04:21
MCV 90.9 fL (81.0-99.0) 07/14/23 04:21
MCH 31.1 pg (27.0-31.0) H 07/14/23 04:21
MCHC 34.2 g/dL (33.0-37.0) 07/14/23 04:21
RDW 15.4 % (11.5-14.5) H 07/14/23 04:21
Plt Count 177 10^3/uL (130-400) 07/14/23 04:21
MPV 9.6 fL (7.4-10.4) 07/14/23 04:21
Abs Immat Gran (auto) 0.0 10^3/uL (0-0.05) 07/07/23 10:04
Absolute Neuts (auto) 4.8 10^3/uL (1.4-6.5) 07/07/23 10:04
Absolute Lymphs (auto) 0.5 10^3/uL (1.2-3.4) L 07/07/23 10:04
Absolute Monos (auto) 0.5 10^3/uL (0.1-0.6) 07/07/23 10:04
Absolute Eos (auto) 0.0 10^3/uL (0-0.7) 07/07/23 10:04
Absolute Basos (auto) 0.0 10^3/uL (0-0.2) 07/07/23 10:04
Immature Gran % 0.3 % (0-0.5) 07/07/23 10:04
Neutrophils % 82.9 % (42.2-75.2) H 07/07/23 10:04
Lymphocytes % 8.3 % (20.5-51.1) L 07/07/23 10:04
Monocytes % 8.0 % (1.7-9.3) 07/07/23 10:04
Eosinophils % 0.0 % (0-6) 07/07/23 10:04
Basophils % 0.5 % (0-2) 07/07/23 10:04
Nucleated RBC % 0 % 07/07/23 10:04
PT 14.2 Sec (11.4-14.6) 07/11/23 15:24
INR 1.12 07/11/23 15:24
APTT 27.3 Sec (23.4-35.0) 07/11/23 15:24
Sodium 136 mmol/L (135-145) 07/12/23 04:33
Potassium 3.8 mmol/L (3.5-5.1) 07/12/23 04:33
Chloride 106 mmol/L (98-107) 07/12/23 04:33
Carbon Dioxide 27 mmol/L (22-30) 07/12/23 04:33
BUN 17 mg/dl (7-17) 07/12/23 04:33
Creatinine 0.6 mg/dL (0.6-1.0) 07/12/23 04:33
Estimated Creat Clear Cancelled 07/08/23 20:00
eGFR > 60.00 07/12/23 04:33
Glucose 93 mg/dl (70-99) 07/12/23 04:33
Calcium 8.4 mg/dl (8.4-10.2) 07/12/23 04:33
Magnesium 2.5 mg/dl (1.6-2.3) H 07/11/23 05:48
Iron 58 ug/dl (37-170) 07/12/23 04:33
TIBC 237 ug/dl (265-497) L 07/12/23 04:33
% Saturation 24 % (20-50) 07/12/23 04:33
Ferritin 78.4 ng/ml (11.1-264.0) 07/12/23 04:33
Total Bilirubin 1.3 mg/dl (0.2-1.3) 07/07/23 10:04
AST 29 U/L (14-36) 07/07/23 10:04
ALT 20 U/L (0-35) 07/07/23 10:04
Alkaline Phosphatase 89 U/L (38-126) 07/07/23 10:04
Troponin I < 0.012 ng/ml 07/07/23 12:23
Total Protein 5.8 g/dl (6.3-8.2) L 07/07/23 10:04
Albumin 3.4 g/dl (3.5-5.0) L 07/07/23 10:04
Urine Color Yellow 07/08/23 20:31
Urine Clarity Clear (Clear) 07/08/23 20:31
Urine pH 8.0 (5.0-9.0) 07/08/23 20:31
Ur Specific [place] 1.020 (<1.030) 07/08/23 20:31
Urine Ketones Negative (Negative) 07/08/23 20:31
Urine Occult Blood Negative (Negative) 07/08/23 20:31
Urine Nitrite Negative (Negative) 07/08/23 20:31
Urine Bilirubin Negative (Negative) 07/08/23 20:31
Urine Urobilinogen Negative (Neg - 1+) 07/08/23 20:31
Ur Leukocyte Esterase Negative (Negative) 07/08/23 20:31
Urine Osmolality 133 mOsm/kg (300-900) L 07/08/23 20:31
Urine Creatinine 22.500 mg/dl 07/08/23 20:31
Urine Sodium < 5 mmol/L (30-90) L 07/08/23 20:31
Urine Glucose Negative (Negative) 07/08/23 20:31
Urine Albumin Negative (Neg - Trace) 07/08/23 20:31
Blood Type B POS 07/12/23 18:00
Blood Type Confirm B POS 07/07/23 12:23
Antibody Screen Negative (Negative) 07/12/23 18:00
Crossmatch IS Only See Detail 07/12/23 18:00
�
Diagnostic Results: as per HPI
Assessment
68-year-old female with PMH of ( left hip replacement, neuropathy, mechanical falls) with Displaced left superior pubic ramus fracture and nondisplaced left inferior pubic ramus fracture and shoulder x-ray with Left humeral shaft fracture S/P ORIF
of the proximal humeral shaft fracture on 07/12/2023.�Postop acute� blood loss anemia - s/p 2 units of blood transfusion.
Plan
Debility: PT/OT to increase independence with ADLs, improve balance, coordination, endurance, strength, mobility, community reintegration, decreased burden of care on others and family education.
Left humeral fracture s/p ORIF: Nonweightbearing, arm in sling per Ortho.
Pubic rami fracture: Pain control, monitor left abductor and obturator internus muscles hematomas, ice pack as needed
Hypotension: Resolved. Was most likely from volume/blood loss. Monitor vital signs, IV fluids as needed.
Anemia: Likely multifactorial.�post surgery. Continue to monitor. Hgb 8.2
Hyponatremia. Received 3% saline. [id number]
Psych: Psychology consult.� Monitor mood, medications as needed.
Skin: monitor for pressure sores/rashes/lesions.
Pain: acetaminophen or Tramadol, oxycodone as needed. D/C IV pain meds
Bowel: Colace and Senna, PRN bisacodyl.
Bladder: No retention concerns
DVT Prophylaxis: mechanical, consider chemoprophylaxis
Pulmonary: Incentive spirometry
Safety: Continue to reinforce assistance with all transfers.
Code Status:� Full code
Dispo (date/plan/equipment needs): Home with family care.� Social history reviewed.
Functional and Medical Goals: Modified Independent with ADL�s, ambulation, transfers
Summary of recommendations:
- Discharge Destination: SNF per patient's preference as she is not capable of undergoing intense 3-hour therapy in an acute setting.
Left humeral fracture s/p ORIF: Nonweightbearing, arm in sling per Ortho.
Pubic rami fracture: Pain control, monitor left abductor and obturator internus muscles hematomas, ice pack as needed
Pain: Stop IV pain meds
DVT Prophylaxis: mechanical, consider chemoprophylaxis
Thank you for allowing me to care for your patient. Please contact me with any questions or concerns.
Attending statement:
I saw and examined the patient today. Reviewed care plan with patient, therapy, nursing, and physician therapy assistant. I agree with the above subjective, physical exam, and plan as documented above.
[2023-07-14 16:00] VITALS: BP 153/84
[2023-07-14 20:37] VITALS: BP 114/82; BP 130/68; PULSE 103; PULSE 86
[2023-07-14 23:12] VITALS: BP 112/63
[2023-07-15] MEDS: TYLENOL 1000 MG PO ×4 (00:18→23:21)
[2023-07-15 07:39] VITALS: BP 94/68
--- NOTE | 2023-07-15 13:11 | W.PN.HOSP.TC ---
Today's Communication/Plan
-
dc
Assessment / Plan
Assessment / Plan
Assessment/Plan
# Fall with arm and pubic rami fracture fracture
# Left Humerus Fracture s/p ORIF 07/11
-Chest abdomen pelvis CT with Partially visualized proximal left humerus fracture. Mildly displaced left superior and inferior pubic rami fractures.
-Hip x-ray with Displaced left superior pubic ramus fracture. Probable nondisplaced left inferior pubic ramus fracture.
-Shoulder x-ray with Left humeral shaft fracture.
# Postop acute blood loss anemia - s/p 2 units of blood transfusion . Follow HH. Aim to keep HH >8
# Acute blood loss anemia -drop since admission noted. No obvious external bleeding. She was noted to be hypotensive with low urine sodium raising concern for volume depletion ,she has pubic rami fracture on fall. Repeated CT chest and
pelvis without contrast shows pelvic fracture associated hematomas. There is a left abductor muscle hematoma as well as left obturator internus muscle hematoma. There is also increased presacral stranding with small amount of fluid consistent with
minimal retroperitoneal hemorrhage but no large fluid collection. No nikhil hemorrhage noted.
HH had been stable prior to sx
CW seq teds
iron stores are adequate
# Fever on July 08, 2023 PM
-No further fever, and no signs of infection or hemodynamic instability
-Hold off on antibiotics at this time
# Hyponatremia -moderately low on adx
-Consulted nephrology, recommendations appreciated: received 3% saline
- Sodium 137
- Urine Na suggests prerenal stimuli/volume depletion but UOsm doesn't correlate.
# Hypotension likely from volume /blood loss - RESOLVED
-Soft BP in ER -- NOW IMPROVED
-Orthostatic vital signs negative
-Monitor vital signs
-Received IV fluids
#Neuropathy
#DVT prophylaxis
-scd
#CODE status
-full code
Remains medically stable for rehab
[facility] Physiatry 07/13- [facility] not [facility] due to pain issues. Patient also wishes not to go to acute rehab and prefers SNF as she does not think she can go through 3 hours of PT
DC to rehab when bed available
More than 30 minutes spent in discharge including
Final examination of the patient
Summarizing hospital stay
Instructions for continuing care to all relevant caregivers
Preparation of discharge records, prescriptions, and referral forms
Total time spent (in minutes): 35
Anticipated Discharge: Today
Subjective/Interval History
-
Date of Service: July 15, 2023
Slow progressive improvement with her pain
Left arm swelling is improving
No nausea vomiting with pain medication. Just using tramadol .
Objective Data
-
Vital Signs:
Vital Signs
Temp Pulse Resp BP Pulse Ox
98.4 F 80 18 94/68 99
07/15/23 07:39 07/15/23 07:39 07/15/23 07:39 07/15/23 07:39 07/15/23 08:00
I&O
07/14/23 07/15/23 07/16/23
06:59 06:59 06:59
Intake Total 1140 / 1140 1200 / 1200
Output Total 600 / 600 1100 / 1100
Balance 540 / 540 100 / 100
Review of Systems
-
Constitutional: Denies Fever
Respiratory: Denies Trouble Breathing
Cardiac: Denies Chest Pain
Neuro: Denies Dizzy
Physical Exam
-
General: No Apparent Distress
HEENT: Moist Mucous Membranes
Respiratory: Clear to Auscultation
Cardiac: Regular Rhythm and S1/S2
GI: Soft
Musculoskeletal: Other (Left arm with improved swelling); Negative No Edema
Neuro: AO x 3
[2023-07-15 15:05] VITALS: BP 115/63
[2023-07-15 16:23] VITALS: BP 111/70; PULSE 85; O2SAT 100
[2023-07-15 16:37] VITALS: BP 111/70; PULSE 80; O2SAT 100
--- NOTE | 2023-07-15 16:49 | CM ---
Both [facility] and [facility] declined accepting patient. They recommended SNF. Spoke to patient she is amenable to SNF. [facility] is preference. Referral previously sent with many others. Left phone message at [facility] admissions x2
for bed availability.
[2023-07-15 23:00] VITALS: BP 128/78
[2023-07-16 07:10] VITALS: BP 126/72
[2023-07-16] MEDS: TYLENOL 1000 MG PO ×2 (08:00→15:26)
[2023-07-16 09:07] VITALS: BP 145/62; BP 147/62; PULSE 76; O2SAT 100
[2023-07-16 11:00] VITALS: BP 109/66; BP 109/71; BP 111/65; PULSE 78; PULSE 79; PULSE 91
--- NOTE | 2023-07-16 13:27 | W.PN.HOSP.TC ---
Today's Communication/Plan
-
DC
Assessment / Plan
Assessment / Plan
Assessment/Plan
# Fall with arm and pubic rami fracture fracture
# Left Humerus Fracture s/p ORIF 07/11
-Chest abdomen pelvis CT with Partially visualized proximal left humerus fracture. Mildly displaced left superior and inferior pubic rami fractures.
-Hip x-ray with Displaced left superior pubic ramus fracture. Probable nondisplaced left inferior pubic ramus fracture.
-Shoulder x-ray with Left humeral shaft fracture.
# Postop acute blood loss anemia - s/p 2 units of blood transfusion . Follow HH. Aim to keep HH >8
# Acute blood loss anemia -drop since admission noted. No obvious external bleeding. She was noted to be hypotensive with low urine sodium raising concern for volume depletion ,she has pubic rami fracture on fall. Repeated CT chest and
pelvis without contrast shows pelvic fracture associated hematomas. There is a left abductor muscle hematoma as well as left obturator internus muscle hematoma. There is also increased presacral stranding with small amount of fluid consistent with
minimal retroperitoneal hemorrhage but no large fluid collection. No nikhil hemorrhage noted.
HH had been stable prior to sx
CW seq teds
iron stores are adequate
# Fever on July 08, 2023 PM
-No further fever, and no signs of infection or hemodynamic instability
-Hold off on antibiotics at this time
# Hyponatremia -moderately low on adx
-Consulted nephrology, recommendations appreciated: received 3% saline
- Sodium 137
- Urine Na suggests prerenal stimuli/volume depletion but UOsm doesn't correlate.
# Hypotension likely from volume /blood loss - RESOLVED
-Soft BP in ER -- NOW IMPROVED
-Orthostatic vital signs negative
-Monitor vital signs
-Received IV fluids
#Neuropathy
#DVT prophylaxis
-scd
#CODE status
-full code
Remains medically stable for rehab
DC to rehab when bed available
Anticipated Discharge: Today
Subjective/Interval History
-
Date of Service: July 16, 2023
Pain much better controlled. Not even requiring tramadol now. Left arm swelling up and down depending on position.
Objective Data
-
Vital Signs:
Vital Signs
Temp Pulse Resp BP Pulse Ox
98.6 F 78 15 111/65 99
07/16/23 11:00 07/16/23 11:00 07/16/23 11:00 07/16/23 11:00 07/16/23 11:00
I&O
07/15/23 07/16/23 07/17/23
06:59 06:59 07:59
Intake Total 1200 / 1200 1620 / 1620
Output Total 1100 / 1100
Balance 100 / 100 1620 / 1620
Review of Systems
-
Constitutional: Denies Fever
Respiratory: Denies Trouble Breathing
Cardiac: Denies Chest Pain
Abdomen/GI: Denies Nausea or Vomiting
Neuro: Denies Dizzy
Physical Exam
-
General: No Apparent Distress
HEENT: Moist Mucous Membranes
Respiratory: Clear to Auscultation
Cardiac: Regular Rhythm and S1/S2
Musculoskeletal: Edema, Left Upper Extrem
Neuro: AO x 3
Psych: Calm
Data Reviewed
-
Labs: Labs Reviewed by me
[2023-07-16 15:00] VITALS: BP 113/63
[2023-07-16 23:01] VITALS: BP 113/72; BP 130/51; BP 130/54; PULSE 79; PULSE 81
[2023-07-17] MEDS: TYLENOL PO (00:30)
[2023-07-17 06:31] LABS: Hematocrit 25.8 % (37.0-47.0); Hemoglobin 8.8 g/dL (12.0-16.0); Mean Corp Hgb Conc. 34.1 g/dL (33.0-37.0); Mean Corpuscular Hgb 31.3 pg (27.0-31.0); Mean Corpuscular Volume 91.8 fL (81.0-99.0); Platelet Count 264 10^3/uL (130-400); Red Blood Cell Count 2.81 10^6/uL (4.20-5.40); White Blood Cell Count 4.6 10^3/uL (4.8-10.8)
[2023-07-17 07:20] VITALS: BP 121/64
[2023-07-17] MEDS: TYLENOL 1000 MG PO ×3 (09:04→23:05)
--- NOTE | 2023-07-17 12:46 | W.PN.HOSP.TC ---
Today's Communication/Plan
-
Ongoing disposition efforts
Assessment / Plan
Assessment / Plan
Assessment/Plan
# Fall with arm and pubic rami fracture fracture
# Left Humerus Fracture s/p ORIF 07/11
-Chest abdomen pelvis CT with Partially visualized proximal left humerus fracture. Mildly displaced left superior and inferior pubic rami fractures.
-Hip x-ray with Displaced left superior pubic ramus fracture. Probable nondisplaced left inferior pubic ramus fracture.
-Shoulder x-ray with Left humeral shaft fracture.
# Postop acute blood loss anemia - s/p 2 units of blood transfusion . Follow HH- stable. Aim to keep HH >8
# Acute blood loss anemia -drop since admission noted. No obvious external bleeding. She was noted to be hypotensive with low urine sodium raising concern for volume depletion ,she has pubic rami fracture on fall. Repeated CT chest and
pelvis without contrast shows pelvic fracture associated hematomas. There is a left abductor muscle hematoma as well as left obturator internus muscle hematoma. There is also increased presacral stranding with small amount of fluid consistent with
minimal retroperitoneal hemorrhage but no large fluid collection. No nikhil hemorrhage noted.
HH had been stable prior to sx
CW seq teds
iron stores are adequate
# Fever on July 08, 2023 PM
-No further fever, and no signs of infection or hemodynamic instability
-Hold off on antibiotics at this time
# Hyponatremia -moderately low on adx
-Consulted nephrology, recommendations appreciated: received 3% saline
- Sodium 137
- Urine Na suggests prerenal stimuli/volume depletion but UOsm doesn't correlate.
# Hypotension likely from volume /blood loss - RESOLVED
-Soft BP in ER -- NOW IMPROVED
-Orthostatic vital signs negative
-Monitor vital signs
-Received IV fluids
#Neuropathy
#DVT prophylaxis
-scd
#CODE status
-full code
Remains medically stable for rehab
DC to rehab when bed available
Anticipated Discharge: Within 24 hours
Subjective/Interval History
-
Date of Service: July 17, 2023
No new symptoms
Pain from fx and fx repair sites are ok
Objective Data
-
Labs:
Laboratory Results
07/17/23
05:16
WBC 4.6 L
Hgb 8.8 L
Hct 25.8 L
Plt Count 264 D
Vital Signs:
Vital Signs
Temp Pulse Resp BP Pulse Ox
98.2 F 76 18 121/64 99
07/17/23 07:20 07/17/23 07:20 07/17/23 07:20 07/17/23 07:20 07/17/23 07:20
I&O
07/16/23 07/17/23 07/18/23
05:59 06:59 06:59
Intake Total
Balance
Review of Systems
-
Respiratory: Denies Trouble Breathing
Cardiac: Denies Chest Pain
Abdomen/GI: Denies Nausea or Vomiting
Neuro: Denies Dizzy
Physical Exam
-
General: Comfortable
HEENT: Moist Mucous Membranes
Respiratory: Clear to Auscultation
Cardiac: Regular Rhythm and S1/S2
Musculoskeletal: Edema, Left Upper Extrem (slow improvement)
Neuro: AO x 3
Data Reviewed
-
Labs: Labs Reviewed by me
[2023-07-17 15:47] VITALS: BP 142/66
[2023-07-17 23:29] VITALS: BP 106/63
[2023-07-18 07:46] VITALS: BP 117/89
[2023-07-18 07:47] VITALS: BP 117/89; BP 118/71; BP 124/72; PULSE 71; PULSE 82
--- NOTE | 2023-07-18 08:11 | W.PN.HOSP.TC ---
Addendum entered and electronically signed by Prakash Walker MD 07/18/23 11:40:
I spoke (via [place] [employer], on July 18, 2023) with both Dr. Keegan Chris and Dr. Armando Aleman (both of who are [facility]) and, after discussing patient's recent hematoma and hemorrhage on recent CT Abdomen Pelvis this
admission, they were okay with, and recommended starting Aspirin 81 mg daily (for 3 to 4 weeks) on discharge for DVT prophylaxis.
Original Note:
Today's Communication/Plan
-
Discharge today
Assessment / Plan
Assessment / Plan
Physical Exam
General: Comfortable
HEENT: Moist Mucous Membranes
Respiratory: Clear to Auscultation
Cardiac: Regular Rhythm and S1/S2
Musculoskeletal: Edema, Left Upper Extrem (slow improvement)
Neuro: AO x 3
Assessment/Plan
# Fall with arm and pubic rami fracture fracture
# Left Humerus Fracture status post open reduction internal fixation of left comminuted proximal humeral shaft fracture 07/12/23
-Chest abdomen pelvis CT with Partially visualized proximal left humerus fracture. Mildly displaced left superior and inferior pubic rami fractures.
-Hip x-ray with Displaced left superior pubic ramus fracture. Probable nondisplaced left inferior pubic ramus fracture.
-Shoulder x-ray with Left humeral shaft fracture.
-s/p ORIF 07/12/23
-Nonweightbearing left upper extremity in sling
-PT/OT: okay for passive range of motion only to include pendulum exercises
-Pain controlled
-Follow-up with Dr. Keegan Chris by July 27, 2023
# Post-op acute blood loss anemia - s/p 2 units of blood transfusion on July 12, 2023. Follow CBC outpatient. Aim to keep HH >8
# Acute blood loss anemia -drop since admission noted. No obvious external bleeding. She was noted to be hypotensive with low urine sodium raising concern for volume depletion ,she has pubic rami fracture on fall. Repeated CT chest and
pelvis without contrast shows pelvic fracture associated hematomas. There is a left abductor muscle hematoma as well as left obturator internus muscle hematoma. There is also increased presacral stranding with small amount of fluid consistent with
minimal retroperitoneal hemorrhage but no large fluid collection. No nikhil hemorrhage noted.
HH had been stable prior to sx
CW seq teds
iron stores are adequate
# Per CT Abdomen/Pelvis done on July 11, 2023 as per radiologist's report: '....however now with increased adjacent minimal stranding in the subcutaneous fat anterior to the pubic symphysis and along the inferior pubic ramus as well as slight
increase in overall size of the left adductor muscles compared to the right consistent with hematoma however no nikhil hemorrhage. Slight asymmetric increase in size of the left obturator internus muscle consistent with mild hematoma. No nikhil
hemorrhage. Increase in presacral stranding and a small amount of fluid most consistent with minimal retroperitoneal retroperitoneal hemorrhage however no large fluid collection. No nikhil hemorrhage. Images are limited due to the significant
artifact from the left total hip replacement.'
#Hematomas
#Minimal Retroperitoneal Hemorrhage
-Monitor vital signs multiple times daily
-Monitor for any new symptoms
-Monitor CBC
# Fever on July 08, 2023 PM
-No further fever, and no signs of infection or hemodynamic instability
-Hold off on antibiotics at this time
# Hyponatremia -moderately low on adx
-Consulted nephrology, recommendations appreciated: received 3% saline
- Sodium 136
- Urine Na suggests prerenal stimuli/volume depletion but UOsm doesn't correlate.
# Hypotension likely from volume /blood loss - RESOLVED
-Soft BP in ER -- NOW IMPROVED
-Orthostatic vital signs negative
-Monitor vital signs
-Received IV fluids
#Neuropathy
#DVT prophylaxis
-scd
#CODE status
-full code
More than 30 minutes spent in discharge including
Final examination of the patient
Summarizing hospital stay
Instructions for continuing care to all relevant caregivers
Preparation of discharge records, prescriptions, and referral forms
Total time spent (in minutes): 39
Anticipated Discharge: Today
Subjective/Interval History
-
Date of Service: July 18, 2023
Patient was seen and examined. She denied any significant pain or any other new symptoms or complaints.
Objective Data
-
Vital Signs:
Vital Signs
Temp Pulse Resp BP Pulse Ox
98.1 F 71 18 117/89 100
07/18/23 07:46 07/18/23 07:46 07/18/23 07:46 07/18/23 07:46 07/18/23 07:46
I&O
07/17/23 07/18/23 07/19/23
06:59 06:59 06:59
Intake Total 1200 / 1200
Balance 1200 / 1200
[2023-07-18] MEDS: TYLENOL 1000 MG PO (08:28)
[2023-07-18 10:45] VITALS: BP 117/89; PULSE 71; O2SAT 100
--- NOTE | 2023-07-18 11:10 | CM ---
Patient has been medically cleared for discharge to [facility] for long term and rehab services. Transport is to be scheduled after 3:00PM. Patient, and Team aware.
NURSE TO NURSE # [phone]
FAX # [phone]
[2023-07-18 12:57] VITALS: BP 105/64
--- NOTE | 2023-07-28 21:43 | W.DCSUMMARY ---
Discharge Summary
Discharge Data
Date of Admission: 07/08/23
Date of Discharge: 07/18/23
Total time spent discharging patient (in min): 35
-
Pending Results: No
Hospital Course
68-year-old female with past medical history of left hip replacement, neuropathy and mechanical falls presented status post fall at the [employer]. Patient was at the movie theater, she was holding her urine for a long time, she went to
the bathroom, however after using the bathroom and after coming out of the bathroom, she tripped onto the carpet and fell onto her left side. She says she injured her left shoulder and left hip. She said that she did not hit her head and did not
lose consciousness, and denied any having palpitations, sweating, chest pain, blurry vision or shortness of breath prior to the fall. She denied any headache or neck pain, back pain, chest or abdominal pain. She denied any numbness or true weakness
in her extremities.
Patient was noted to be hypotensive in the emergency room with systolic blood pressures in the 50s to 70s. Patient was suspected to likely have dehydration and intravenous fluids were given with improvement in blood pressures. X-ray of the left
shoulder showed comminuted proximal humeral shaft fracture with displacement
and CT imaging of the chest abdomen pelvis showed left-sided pelvic injury with superior and inferior pubic rami fracture, as per orthopedics who was consulted after the fractures were found on imaging.
Patient had worsening hyponatremia for which nephrology was consulted. Patient received 3% saline, and patient's sodium normalized.
Patient was noted to have severe anemia, with hemoglobin worse than it was on admission. A repeat CT abdomen pelvis was done to check for for any retroperitoneal bleeding of bleeding around patient's pelvis fracture site, and it showed, as per
radiologist's report's impression section,
'No change in the comminuted fractures of the left superior and inferior pubic rami, however now with increased adjacent minimal stranding in the subcutaneous fat anterior to the pubic symphysis and along the inferior pubic ramus as well as slight
increase in overall size of the left adductor muscles compared to the right consistent with hematoma however no nikhil hemorrhage.
Slight asymmetric increase in size of the left obturator internus muscle consistent with mild hematoma. No nikhil hemorrhage.
Increase in presacral stranding and a small amount of fluid most consistent with minimal retroperitoneal retroperitoneal hemorrhage however no large fluid collection. No nikhil hemorrhage. Images are limited due to the significant artifact from the
left total hip replacement.'
On July 12, 2023, patient had an open reduction internal fixation left proximal humeral shaft fracture. Hospitalist spoke (via [place] [employer], on July 18, 2023) with both Dr. Keegan Chris and Dr. Armando Aleman (both of who are [facility]) and, after discussing patient's recent hematoma and hemorrhage on recent CT Abdomen Pelvis this admission, they were okay with, and recommended starting (on discharge) Aspirin 81 mg daily (for 3 to 4 weeks) for DVT prophylaxis.
Discharge Plan
-
Patient Disposition: Jail/SNF
Discharge Diagnosis/Procedures: Left humerus fracture status post ORIF
Pelvic fracture status post fall
Anemia secondary to postop blood loss, pelvic fracture, mild RP bleed.
Diet: Regular
Activity: As tolerated
Driving Restrictions: Not until seen by your Dr
Bathing Restrictions: None
Blood Work: CBC in a week
Other Services: PT and OT
Referrals:
Quique Roth MD [Family Provider] -
Prescriptions:
New
tramadol 50 mg Tablet
25 mg PO Q6HPRN PRN (Reason: moderate pain) Qty: 12 0RF
acetaminophen [Tylenol Extra Strength] 500 mg Tablet
1,000 mg PO Q8 Qty: 1 0RF
docusate sodium 100 mg Capsule
100 mg PO BID Qty: 1 0RF
oxycodone 5 mg Tablet
5 mg PO Q4HPRN PRN (Reason: severe pain) Qty: 12 0RF
aspirin 81 mg capsule
81 mg PO DAILY 28 Days Qty: 28 0RF
Continued
cyanocobalamin (vitamin B-12) 1,000 mcg/mL Drops
1 ml PO DAILY
Patient Comments:
07/07/2023, sublingual.
Beet Powder
1 dose PO .MID-DAY
Patient Comments:
07/07/2023, one scoop.
ICaps
1 tab PO BID
Vitamin C With Essie Hips
1 tab PO DAILY@1400
Discharge Orders:
Discharge Patient (As Directed); Ordered 07/18/23
Ordered By: Prakash Walker
Discharge Date and Time
Discharge Date/Time: 07/18/23 15:37
== END 2023-07-18 15:37 | DRG 492 ==
LOC: 2 SOUTH 16:02
PROVIDERS: Anesthesiology; Internal Medicine; Registered Nurse; ADMITTING PHYSICIAN Hospitalist; CONSULT PHYSICIAN Orthopaedic Surgery; CONSULT PHYSICIAN Physical Medicine & Rehabilitation; CONSULT PHYSICIAN Specialist; EMERGENCY PHYSICIAN Emergency Medicine; FAMILY PHYSICIAN Internal Medicine
PROC: 0PSG04Z Reposition Left Humeral Shaft with Internal Fixation Device, Open Approach (ICD-10-PCS; 2023-07-12)
PROC: 30233N1 Transfusion of Nonautologous Red Blood Cells into Peripheral Vein, Percutaneous Approach (ICD-10-PCS; 2023-07-12)
DX: S42.202A Unspecified fracture of upper end of left humerus, initial encounter for closed fracture (principal); K68.3 Retroperitoneal hematoma; S32.592A Other specified fracture of left pubis, initial encounter for closed fracture; D61.818 Other pancytopenia; E87.1 Hypo-osmolality and hyponatremia; D62 Acute posthemorrhagic anemia; S70.02XA Contusion of left hip, initial encounter; S70.12XA Contusion of left thigh, initial encounter; W01.0XXA Fall on same level from slipping, tripping and stumbling without subsequent striking against object, initial encounter; Y93.01 Activity, walking, marching and hiking; Y92.26 Movie house or cinema as the place of occurrence of the external cause; G62.9 Polyneuropathy, unspecified; E86.1 Hypovolemia; E86.0 Dehydration; I95.9 Hypotension, unspecified; I10 Essential (primary) hypertension; Z96.642 Presence of left artificial hip joint; Z87.891 Personal history of nicotine dependence
CPT/HCPCS: 71260; 73030; 73060; 73502; 74176; 74177; 76000; 80048; 80053; 81003; 82570; 82728; 83540; 83550; 83735; 83935; 84300; 84484; 85014; 85018; 85025; 85027; 85610; 85730; 86850; 86900; 86901; 86920; 93005; 97110; 97112; 97116; 97530; 97535; C1713; P9016; P9045; Q9967

== ENCOUNTER → 2023-07-25 10:44 | Outpatient (REF) | payer OTHER, MEDICARE, SELFPAY ==
[2023-07-25 11:40] LABS: Hematocrit 31.3 % (37.0-47.0); Hemoglobin 9.9 g/dL (12.0-16.0); Mean Corp Hgb Conc. 31.6 g/dL (33.0-37.0); Mean Corpuscular Hgb 31.1 pg (27.0-31.0); Mean Corpuscular Volume 98.4 fL (81.0-99.0); Mean Platelet Volume 10.1 fL (7.4-10.4); Platelet Count 334 10^3/uL (130-400); Red Blood Cell Count 3.18 10^6/uL (4.20-5.40); Red Cell Dist. Width 15.5 % (11.5-14.5); White Blood Cell Count 3.7 10^3/uL (4.8-10.8)
== END ==
LOC: OLABP 10:44
PROVIDERS: ATTENDING PHYSICIAN Student in an Organized Health Care Education/Training Program
DX: I95.9 Hypotension, unspecified (principal); S32.599A Other specified fracture of unspecified pubis, initial encounter for closed fracture; S42.309A Unspecified fracture of shaft of humerus, unspecified arm, initial encounter for closed fracture; D62 Acute posthemorrhagic anemia; E87.1 Hypo-osmolality and hyponatremia; G62.9 Polyneuropathy, unspecified
CPT/HCPCS: 36415; 85027

== ENCOUNTER → 2023-08-01 10:29 | Outpatient (REF) | payer OTHER, MEDICARE, SELFPAY ==
[2023-08-01 11:40] LABS: Hematocrit 32.7 % (37.0-47.0); Hemoglobin 10.5 g/dL (12.0-16.0); Mean Corp Hgb Conc. 32.1 g/dL (33.0-37.0); Mean Corpuscular Hgb 31.3 pg (27.0-31.0); Mean Corpuscular Volume 97.3 fL (81.0-99.0); Platelet Count 236 10^3/uL (130-400); Red Blood Cell Count 3.36 10^6/uL (4.20-5.40); Red Cell Dist. Width 15.3 % (11.5-14.5); White Blood Cell Count 2.8 10^3/uL (4.8-10.8)
== END ==
LOC: OLABP 10:29
PROVIDERS: ATTENDING PHYSICIAN Student in an Organized Health Care Education/Training Program
DX: S32.599A Other specified fracture of unspecified pubis, initial encounter for closed fracture (principal); S42.309A Unspecified fracture of shaft of humerus, unspecified arm, initial encounter for closed fracture; D62 Acute posthemorrhagic anemia; E87.1 Hypo-osmolality and hyponatremia; G62.9 Polyneuropathy, unspecified; I95.9 Hypotension, unspecified
CPT/HCPCS: 36415; 85027